=== PATIENT | female | born 1980 | race Caucasian/White ===

== ENCOUNTER → 2016-06-28 | Outpatient (CLI) | payer BC ==
[~2016-06-28] MED LIST: CETI10CA19 PO; DESO1TAB5 PO; OMEP-80 PO
[2016-06-28 11:02] LABS: BASOPHILS % (AUTO) 0.2 % (0-2); EOSINOPHILS # (AUTO) 0.1 T/MM3 (0-0.5); EOSINOPHILS % (AUTO) 1.1 % (0-4); HCT - HEMATOCRIT 40.2 % (36-46); HGB - HEMOGLOBIN 13.1 GM/DL (12-16); IMMATURE GRANULOCYTE # (AUTO) 0.03 T/MM3 (0.00-0.03); IMMATURE GRANULOCYTE % (AUTO) 0.2 % (0.0-0.5); LYMPHOCYTES # (AUTO) 3.1 T/MM3 (1-4.8); LYMPHOCYTES % (AUTO) 24.5 % (23-45); MEAN CORPUSCULAR HGB 26.7 UUG (26-34); MEAN CORPUSCULAR HGB CONC(MCHC 32.6 GM/DL (31-37); MEAN CORPUSCULAR VOLUME 81.9 UM3 (80-100); MEAN PLATELET VOLUME 10.3 UM3 (9.4-12.4); MONOCYTES # (AUTO) 0.5 T/MM3 (0-0.8); MONOCYTES % (AUTO) 4.2 % (0-9.0); NEUTROPHILS #(AUTO)-ABSOLUTE 8.7 T/MM3 (1.8-7.7); NEUTROPHILS % (AUTO) 69.8 % (33-66); RED BLOOD COUNT 4.91 M/MM3 (4.00-5.20); WBC - WHITE BLOOD COUNT 12.5 T/MM3 (4.5-11.0)
[2016-06-28 11:06] LABS: BLOOD, URINE NEGATIVE (NEGATIVE); COLOR,URINE YELLOW (YELLOW); LEUKOCYTE ESTERASE ,URINE NEGATIVE (NEGATIVE); NITRITE,URINE NEGATIVE (NEGATIVE); UROBILINOGEN,URINE 0.2 EU/DL (NORMAL)
[2016-06-28 11:11] LABS: ANION GAP 13 MEQ/L (5-15); BUN/CREATININE RATIO 14 RATIO (6-26); CALCIUM 9.6 MG/DL (8.4-10.2); CHLORIDE 105 MEQ/L (98-107); CO2 - CARBON DIOXIDE 24 MEQ/L (22-30); CREATININE 0.8 MG/DL (0.7-1.2); GLOMERULAR FILTRATION RATE 82; GLUCOSE 133 MG/DL (65-110); POTASSIUM 3.9 MEQ/L (3.6-5); SODIUM 142 MEQ/L (134-144)
--- NOTE | 2016-06-28 12:51 | DI ---
Indication: ITS.REASON: R31.9 HEMATURIA PROCEDURE: CT RENAL W/O CONTRAST: Encounter: Initial Comparison: March 25, 2012 Technique: Axial CT images were performed through the abdomen and pelvis without intravenous contrast. Coronal and sagittal two-dimensional reformats. Automated Exposure Control and Iterative Reconstruction dose reducing techniques were utilized. Findings: The lung bases are clear. The liver shows no contour deforming masses. It is decreased in attenuation relative to the spleen suggesting fatty infiltration. Gallbladder is surgically absent. The spleen is normal. The pancreas and adrenal glands are normal. The kidneys are stable in appearance. No hydronephrosis or stone disease. No ureteral stones. Multiple pelvic phleboliths. The unopacified bladder appears normal. The uterus is normal. Ovaries are normal for age. No free fluid. No evidence of a bowel obstruction. The unenhanced small and large bowel show no acute findings. The appendix is normal. Bone windows are stable without acute findings. Impression: No urolithiasis. No acute disease process seen. No clear etiology for the patient's symptoms. .
== END ==
LOC: IMA 10:37
PROVIDERS: ATTEND Family Medicine
DX: R31.9 Hematuria, unspecified (principal)
CPT/HCPCS: 36415; 80048; 81003; 81025; 85025

== ENCOUNTER 2017-05-01 20:21 | Inpatient (IN) ==
[2017-05-01] MEDS ORDERED: KETOROLAC 30 MG/ML INJECTION IVP ONE (20:36)
[2017-05-01] MEDS ORDERED: NS 1,000 ML IV ONE ×2 (20:36→22:30)
[2017-05-01] MEDS ORDERED: ORPHENADRINE 60 MG/2 ML INJECTION IVP ONE (20:36)
--- NOTE | 2017-05-01 20:36 | Emergency Department Report ---
General Adult HPI - General Stated complaint: low back pain Time Seen by Provider: 05/01/17 20:26 Source: patient, family Mode of arrival: ambulatory Limitations: no limitations - History of Present Illness HPI narrative: Patient was recently dismissed from a hospital in [place] where she was vacationing, and developed a urinary tract infection with subsequent urosepsis, ARDS, and and extended stay in the ICU. Patient was initially treated with meropenem, and then transition to outpatient ertapenem IV daily. Patient presents today with bilateral low back pain, with a feeling of cramps or spasms in the bladder. Due to her recent severe illness, patient admits that she is hypervigilant, and contacted her primary care physician who directed her to the ER. Patient has not taken any medication today, does admit that her pulse normally runs in the high 90s, and that is normal for her. Patient denies fevers , chills, headaches, dizziness, chest pain or pressure, shortness of breath, or abdominal symptoms other than the bladder. Patient was on control when her symptoms initially started last month, but due to her ICU admission, she did not continue control during the illness. Patient had what she would consider normal menses April 21, the day she was extubated. - Related Data Home Medications Medication Instructions Recorded Confirmed Cetirizine HCl [Zyrtec] 10 mg PO HS #0 02/04/12 05/01/17 Omeprazole Magnesium 20 mg PO HS #0 02/04/12 05/01/17 Celecoxib [Celecoxib] 200 mg PO HS 05/01/17 05/01/17 Allergies Allergy/AdvReac Type Severity Reaction Status Date / Time Sulfa (Sulfonamide Allergy Unknown HIVES Verified 05/01/17 20:51 Antibiotics) Review of Systems All systems: reviewed and negative except as stated PFSH Patient Stated Medical History Pneumonia Yes Other Respiratory Yes: RECENT ARDS/sepsis Hx Urinary Tract Infection Yes Other Infectious Yes: ESBL PRODUCING E.COLI - Social History Smoking status: Never smoker Substance use type: does not use Alcohol intake frequency: does not drink Physical Exam - Limitations Limitations: no limitations - General General appearance: alert - Normal Exams: Head:: Normocephalic without trauma Eyes:: Pupils are PERRLA w/ EOMI, No scleral icterus, irritation, or foreign bodies noted ENMT:: No facial trauma, nasal exudates, pharyngeal erythema, or exudates are noted Neck:: Full range of motion, without adenopathy, JVD, bruits or thyromegaly Chest/Respirations:: Clear all lara, with good airflow, and symmetry bilaterally Cardiovascular:: Regular rate and rhythm, without murmur or gallop, Pulses 2+ all extremities, capillary refill, <2 seconds all extremities Abdomen:: Bowel sounds positive, soft, non-tender, non-distended, no hepatosplenomegaly, masses or bruits noted Lymphatic:: No lymphadenopathy, or lymphedema noted Integumentary:: No rashes, hives, or bruising noted, hair and nails, without abnormality Neurological:: Patient is alert, and oriented, cranial nerves, motor/sensory/ cerebellar, exams w/o gross deficits, to observation Psychiatric:: Patient exhibits, appropriate attention, emotion and affect - Back Exam Back exam: Present: normal inspection, full ROM, tenderness ( has mild bilateral parasternal tenderness in the lumbar region, right greater than left, no specific CVA tenderness), muscle spasm Medical Decision Making - [facility] Narrative Medical decision making narrative: Patient is given Toradol, Norflex, and 1 L normal saline in the ER for back pain and mild tachycardia at 105-120 (with admitted anxiety over the illness). CBC - mild elevated white blood cell count at 12, no significant left shift. This actually seems to be an improvement over 2 days ago. CMP - normal, no significant changes in the past several days Lactate/procalcitonin - pro-calcitonin is normal, however lactate is elevated at 3.4 UA - normal Case is discussed with Dr. Mira June, due to the patient's profound and rapid deterioration in the past with urosepsis, and recent extended hospital admission for bacteremia, we will err on the side of caution, start the patient back on meropenem, and admit for observation Case is discussed with hospitalist, Dr. Mortensen will admit the patient inpatient, with infectious disease consultation to Dr. June. - Lab Data Result diagrams: 05/01/17 20:58 05/01/17 20:58 Lab Results 05/01/17 05/01/17 05/01/17 Range/Units 20:58 20:58 20:58 WBC 12.9 H (4.5-11.0) T/MM3 RBC 4.24 (4.00-5.20) M/MM3 Hgb 11.4 L (12-16) GM/DL Hct 35.9 L (36-46) % MCV 84.7 (80-100) UM3 MCH 26.9 (26-34) UUG MCHC 31.8 (31-37) GM/DL RDW Std Deviation 46.1 (36.9-50.2) FL Plt Count 473 H (130-400) T/MM3 MPV 9.9 (9.4-12.4) UM3 Immature Gran % (Auto) 0.4 (0.0-0.5) % Neut % (Auto) 64.1 (33-66) % Lymph % (Auto) 29.2 (23-45) % Haakon % (Auto) 4.7 (0-9.0) % Eos % (Auto) 1.4 (0-4) % Baso % (Auto) 0.2 (0-2) % Neut # (Auto) 8.3 H (1.8-7.7) T/MM3 Lymph # (Auto) 3.8 (1-4.8) T/MM3 Haakon # (Auto) 0.6 (0-0.8) T/MM3 Eos # (Auto) 0.2 (0-0.5) T/MM3 Baso # (Auto) 0.0 (0-0.2) T/MM3 Abs Immat Gran (auto) 0.05 H (0.00-0.03) T/MM3 Turbidity < 20 (0-20) Sodium 144 (134-144) MEQ/L Potassium 3.7 (3.6-5) MEQ/L Chloride 104 (98-107) MEQ/L Carbon Dioxide 24 (22-30) MEQ/L Anion Gap 16 H (5-15) MEQ/L BUN 13.0 (7-17) MG/DL Creatinine 0.6 L (0.7-1.2) mg/dL GFR Calculation 114 BUN/Creatinine Ratio 22 (6-26) RATIO Glucose 151 H (65-110) MG/DL Calculated Osmolality 280 (261-280) MOSM/KG Calcium 9.5 (8.4-10.2) MG/DL Total Bilirubin 0.40 (0.20-1.30) MG/DL Conjugated Bilirubin 0.00 (0.00-0.30) mg/dL Unconjugated Bilirubin 0.00 (0.00-1.1) mg/dL Icterus Index < 2 (0-7) AST 45 H (14-36) U/L ALT 143 H (9-52) U/L Alkaline Phosphatase 108 (38-126) U/L Total Protein 7.5 (6.3-8.2) g/dL Albumin 4.0 (3.5-5.0) g/dL Globulin 3.5 (2.4-3.6) G/DL Albumin/Globulin Ratio 1.1 (1.1-2.2) RATIO Plasma Lactate 3.4 H (0.6-2.2) MMOL/L Procalcitonin < 0.05 NG/ML Specimen Hemolysis < 15 (0-25) Ur Collection Type Urine Color (YELLOW) Urine Clarity Urine pH (5.0-8.0) Ur Specific [place] (1.015-1.025) Urine Protein (NEGATIVE) Urine Glucose (UA) (NEGATIVE) Urine Ketones (NEGATIVE) Urine Occult Blood (NEGATIVE) Urine Nitrate (NEGATIVE) Urine Bilirubin (NEGATIVE) Urine Urobilinogen (NORMAL) EU/DL Ur Leukocyte Esterase (NEGATIVE) Urinalysis Comment Urine Test (Negative) 05/01/17 05/01/17 Range/Units 21:20 21:20 WBC (4.5-11.0) T/MM3 RBC (4.00-5.20) M/MM3 Hgb (12-16) GM/DL Hct (36-46) % MCV (80-100) UM3 MCH (26-34) UUG MCHC (31-37) GM/DL RDW Std Deviation (36.9-50.2) FL Plt Count (130-400) T/MM3 MPV (9.4-12.4) UM3 Immature Gran % (Auto) (0.0-0.5) % Neut % (Auto) (33-66) % Lymph % (Auto) (23-45) % Haakon % (Auto) (0-9.0) % Eos % (Auto) (0-4) % Baso % (Auto) (0-2) % Neut # (Auto) (1.8-7.7) T/MM3 Lymph # (Auto) (1-4.8) T/MM3 Haakon # (Auto) (0-0.8) T/MM3 Eos # (Auto) (0-0.5) T/MM3 Baso # (Auto) (0-0.2) T/MM3 Abs Immat Gran (auto) (0.00-0.03) T/MM3 Turbidity (0-20) Sodium (134-144) MEQ/L Potassium (3.6-5) MEQ/L Chloride (98-107) MEQ/L Carbon Dioxide (22-30) MEQ/L Anion Gap (5-15) MEQ/L BUN (7-17) MG/DL Creatinine (0.7-1.2) mg/dL GFR Calculation BUN/Creatinine Ratio (6-26) RATIO Glucose (65-110) MG/DL Calculated Osmolality (261-280) MOSM/KG Calcium (8.4-10.2) MG/DL Total Bilirubin (0.20-1.30) MG/DL Conjugated Bilirubin (0.00-0.30) mg/dL Unconjugated Bilirubin (0.00-1.1) mg/dL Icterus Index (0-7) AST (14-36) U/L ALT (9-52) U/L Alkaline Phosphatase (38-126) U/L Total Protein (6.3-8.2) g/dL Albumin (3.5-5.0) g/dL Globulin (2.4-3.6) G/DL Albumin/Globulin Ratio (1.1-2.2) RATIO Plasma Lactate (0.6-2.2) MMOL/L Procalcitonin NG/ML Specimen Hemolysis (0-25) Ur Collection Type Urine, void-cc/notcc Urine Color Yellow (YELLOW) Urine Clarity Clear Urine pH 6.0 (5.0-8.0) Ur Specific [place] 1.015 (1.015-1.025) Urine Protein Negative (NEGATIVE) Urine Glucose (UA) Negative (NEGATIVE) Urine Ketones Negative (NEGATIVE) Urine Occult Blood Negative (NEGATIVE) Urine Nitrate Negative (NEGATIVE) Urine Bilirubin Negative (NEGATIVE) Urine Urobilinogen 0.2 (NORMAL) EU/DL Ur Leukocyte Esterase Negative (NEGATIVE) Urinalysis Comment Microscopic not ind. Urine Test Negative (Negative) Disposition Clinical Impression: Elevated lactic acid level Disposition: 02 To [facility] Care Prescriptions: No Action Omeprazole Magnesium 20 mg PO HS #0 Cetirizine HCl [Zyrtec] 10 mg PO HS #0 Celecoxib [Celecoxib] 200 mg PO HS Referrals: Swapna Khalil MD [Family Provider] - - Seen By: physician
[2017-05-01] MEDS: SALINE FLUSH 10ml SYRINGE IVF PRN (21:13)
[2017-05-01] MEDS: MEROPENEM 1 GM in NS 100 ML IV SCH (22:29)
[2017-05-01 22:36] VITALS: TEMP 98.2
[2017-05-01] MEDS ORDERED: MORPHINE SULFATE 4mg INJECTION IVP PRN (23:46)
[2017-05-01] MEDS ORDERED: NS 1,000 ML IV SCH (23:46)
[2017-05-01] MEDS ORDERED: ACETAMINOPHEN 500 MG TABLET PO PRN (23:46)
[2017-05-01] MEDS ORDERED: DOCUSATE SODIUM 100 MG CAPSULE PO PRN (23:46)
[2017-05-01] MEDS ORDERED: HYDROCODONE/APAP 5mg/325mg TABLET PO PRN (23:46)
[2017-05-01] MEDS ORDERED: ONDANSETRON 4 MG/2 ML INJECTION IVP PRN (23:46)
--- NOTE | 2017-05-02 00:04 | History & Physical Report ---
History of Present Illness Date: 05/02/17 Chief complaint: low back pain HPI: This is a 36 y/o female who was in her normal state of health until approximately 3 weeks ago. She developed a UTI and traveled to [place]. There her infection worsened and she ended up in intubated for 10 days with ARDS , multisystem organ failure. The patient was discharged on invanz to return to our community. Since discharge the patient has been seen by Dr. June. She finished her last antibitoic about 1 day ago. Since then she has felt worse with increased lower back pain. (across the entire low back). This pain is not worsened with movement. Although will state if she lies perfectly still it doesn't hurt as much. The patient presented to the ED tonight for evaluation. Due to her recent critical illness it was felt to be cautious. In the ED the workup was entirely unremarkable except for an elevated LA. The ED provider contacted ID and they recommended admission with Meropenem. Review of Systems Review of systems: no headache, no change in vision, no ear pain, slight scratchy to throat (from intubation, and improving) no neck pain, no chest pain, occasional dry cough. non productive and not changed since return to [place]. No heart palpitations, mild dyspnea but not worse. no abdomen pain, no nausea/vomiting. no change in her bowel movements. no vaginal discharge, no dysuria. no skin rashes, no focal neuro complaints The patient reports that while in [facility] her counts concerned the staff for possible leukemia. The patient has an appointment with hematology to do a bone marrow bx soon The patient has chronically increased inflammatory markers that nobody has been able to describe to a specific disease. 12 point ROS otherwise negative except for outlined above. Past Medical History UTI, septic shock, ARDS, elevated sed rate, elevated CRP Surgical History: cholecystectomy, c section, egg harvest for in vitro fertilization Family History Updates: mother alive with MS, Father alive and healthy - Social History Smoking status: Never smoker Substance use type: does not use Alcohol intake: never Alcohol intake frequency: does not drink Housing: house Household members: spouse, children service: No Current occupational status: employed Current occupation: head of radiology department @ [employer] Does patient use chewing tobacco?: No Current residence: Apartment/Private Home Medications Home Medications Medication Instructions Recorded Confirmed Type Cetirizine HCl [Zyrtec] 10 mg PO HS #0 02/04/12 05/01/17 History Omeprazole Magnesium 20 mg PO HS #0 02/04/12 05/01/17 History Celecoxib 200 mg PO HS 05/01/17 05/01/17 History Allergies Allergy/AdvReac Type Severity Reaction Status Date / Time Sulfa (Sulfonamide Allergy Unknown HIVES Verified 05/01/17 20:51 Antibiotics) Exam Vital Signs: Temperature 98.2 F 05/01/17 20:27 Pulse Rate 111 H 05/01/17 23:48 Respiratory Rate 20 05/01/17 23:48 Blood Pressure 152/89 H 05/01/17 23:48 Pulse Oximetry 100 05/01/17 23:48 Telemetry Rhythm: Sinus Rhythm Height/Weight/BMI: Height 1.63 m Weight 119.8 kg Body Mass Index 45.3 - Constitutional Present: no acute distress, well nourished, obese, cooperative - Routine HEENT Exam Head: Present: normocephalic, atraumatic Eye: Present: EOMI, normal accommodation, conjunctivae pink. Absent: conjunctival icterus, scleral injection ENT: Present: mucous membranes moist - Routine Neck Exam Present: supple, full ROM - Routine Respiratory Exam Present: CTA bilaterally - Routine Cardiovascular Exam Present: RRR, no murmur - Routine Abdominal Exam Present: soft, normoactive bowel sounds, non distended, non tender - Routine Extremities Exam Present: no edema, full ROM, normal capillary refill. Absent: cyanosis, clubbing - Routine Back/Spine/Pelvis Exam Back/Spine: Present: full ROM Comments: palpation of back does not ppt any tender per nursing - Routine Neurological Exam Present: alert, oriented X3, CN II-XII intact, moving all extremities, normal tone, vision grossly intact, hearing grossly intact, normal speech. Absent: sensory deficit, motor deficit, altered mental status - Routine Psychiatric Exam Present: normal affect, normal thought process Results - Labs CBC & Chem 7: 05/02/17 04:56 05/02/17 04:56 Labs: reviewed carefully and will be discussed below Assessment and Plan (1) Elevated lactic acid level Current visit: Yes Status: Acute (2) Transaminitis Current visit: Yes Status: Acute (3) History of ARDS Current visit: Yes Status: Acute Assessment and Plan: 1. elevated LA acute POA: technically meets criteria for severe sepsis but not convinced there is an acute infection occurring. ID was contacted. Recommended to start meropenem after cultures drawn. Will cycle LA and give fluid boluses. repeat labs in the am. Obviously consult ID (placed). This patient had what sounds like an impressive luekamoid reaction with her ARDS. The treating hospital in [place] questioned whether she had been told she had leukemia in the past. Obviously not. Patient is scheduled for BM bx in the near future. 2. transaminitis acute POA: patient reports that during her acute illness they spiked signficantly and are on their way down. Repeat in the am 3. DVT ppx; SCD, lovenox 4. hyperglycemia acute POA: stress. repeat in am. no previously described glucose intolerance. 5. gastric ppx: PPI 6. hx of elevated inflammatory markers chronic POA: signficant workup in the past. no described diagnosis. told maybe autoimmune. To be aware of DVT Prophylaxis: SCD's, Lovenox GI Prophylaxis: Protonix Resuscitation Status: Full Code - Time spent with patient Time with patient PN: 30 minutes - Physician Narrative Physician: Abeba Desouza MD Narrative: Date: 05/02/17 Time: 12:15 See my notes/discharge summary on 05/02/17 for additional comments. Hospital Course Summary Disclaimer: The visit summary below is not to be considered part of the above Progress Note.
[2017-05-02] MEDS ORDERED: PANTOPRAZOLE 40 MG INJECTION IVP SCH ×2 (00:45→09:00)
[2017-05-02] MEDS ORDERED: MEROPENEM 1 GM in NS 100 ML IV SCH ×2 (01:00→06:45)
[2017-05-02] MEDS: SALINE FLUSH 10ml SYRINGE IVF PRN (01:03)
[2017-05-02] MEDS: MEROPENEM 1 GM in NS 100 ML IV SCH (01:16)
[2017-05-02] MEDS ORDERED: MEROPENEM 1 GM in NS 50 ML IV SCH (07:00)
[2017-05-02 07:05] VITALS: BP 130/68; PULSE 100; RESP 16; O2SAT 95
--- NOTE | 2017-05-02 07:48 | XRay Report ---
Indication: sepsis PROCEDURE: XR chest 1V: Encounter: Initial Comparison: April 28, 2017 Findings: The prior right PICC line has been removed. Minimal right basilar atelectatic change is stable. No new airspace disease. No pleural effusion or pneumothorax. Heart size and mediastinal contours are within normal limits. Pulmonary vascularity is normal. Impression: Stable minimal right basilar atelectasis. There is a preliminary report by virtual radiologic. .
--- NOTE | 2017-05-02 09:24 | Infectious Disease Consult ---
Infectious Disease Consult Date of Consultation: 05/02/17 Requesting Physician: Abeba Desouza Reason for Consultation: antibiotic recs History of Present Illness: Mrs. Block is a 36 y/o woman who I saw in clinic yesterday for evaluation of recent sepsis. She reports that she has a history of recurrent UTIs about every 8 months or so. She felt that she had a UTI in mid March and had her urine checked. Her urine culture on April 08 grew an ESBL Escherichia coli. Before those results were available, she was empirically given Cipro. She then traveled to [place] because she and her family were going to [place]. Couple of days later she felt that she was still having dysuria and some right flank pain and that she was not getting better. He called back to her doctor's office to check on her urine culture results and was told that the only oral options were sulfa or Macrobid. She has a sulfa allergy and so she was given Macrobid which she filled at a pharmacy in [place]. She continued to not feel well and was awakened in the middle of the night by her Apple watch because her pulse was 144. Her family took her to the hospital in [place]. Her white blood cell count was about 21,000. She was admitted and developed sepsis with acute respiratory failure necessitating intubation. Her blood cultures were positive for ESBL Escherichia coli per records. She also developed ARDS and was treated with steroids for that as well as doxycycline. She had some elevated liver function tests noted which was thought to possibly be due to the doxycycline. She was intubated for about 6 days and then extubated. She had a CT of the chest looking for pulmonary embolus which was negative by report. She also had a CT of the abdomen and pelvis which per her report was unremarkable. She states this was done without contrast. She was discharged near the end of March and was treated with meropenem which was changed to ertapenem on discharge and this was completed day before yesterday. He saw her in my office yesterday to establish care and to answer some of her questions. She reported that her right flank pain had completely resolved. A few hours after she left my office yesterday she reports that she started having some low back pain and felt fatigued. She called Dr. Khalil the who felt that she should go to the ER to be evaluated. In the emergency room her white blood cell count was mildly elevated but this was actually improved from previously and her lactate was noted to be 3.4. She was tachycardic but not febrile. Dr. Lizarraga from the ER called me last night and we felt that the safest thing to do would be to admit her for observation. He had blood cultures drawn which are pending. Her UA yesterday is completely negative. CXR unremarkable. She was started on meropenem. Today she reports that she feels "fine". He did have some low back pain yesterday which was bilateral and she also reports that she had some bladder spasm type discomfort yesterday. WBC today is normal. I reviewed records yesterday from her hospitalization in [place]. She was seen by an ID doctor there, and Strongyloides Ab was ordered, but I'm not aware of the result. Medications Home Medications Medication Instructions Recorded Confirmed Type Cetirizine HCl [Zyrtec] 10 mg PO HS #0 02/04/12 05/01/17 History Omeprazole Magnesium 20 mg PO HS #0 02/04/12 05/01/17 History Celecoxib [Celecoxib] 200 mg PO HS 05/01/17 05/01/17 History Allergies Allergy/AdvReac Type Severity Reaction Status Date / Time Sulfa (Sulfonamide Allergy Unknown HIVES Verified 05/01/17 20:51 Antibiotics) [facility] Patient Stated Medical History Pneumonia Yes Other Respiratory Yes: RECENT ARDS/sepsis Hx Urinary Tract Infection Yes Other Infectious Yes: ESBL PRODUCING E.COLI Recurrent UTIs H/o chronic leukocytosis Surgical History: cholecystectomy, c section, egg harvest for in vitro fertilization Family History Updates: mother alive with MS, Father alive and healthy - Social History Smoking status: Never smoker Substance use type: does not use Alcohol intake: never Alcohol intake frequency: does not drink Housing: house Household members: spouse, children service: No Current occupational status: employed (works at [employer] [place] Current occupation: head of radiology department @ [employer] Does patient use chewing tobacco?: No Current residence: Apartment/Private Home Review of Systems - Constitutional Constitutional: Absent: chills, fever(s), headache(s) - EENMT Eyes: Absent: change in vision - Cardiovascular Cardiovascular: Absent: chest pain - Respiratory Respiratory: Absent: cough, dyspnea - Gastrointestinal Gastrointestinal: Present: abdominal pain (near bladder yesterday). Absent: diarrhea, nausea, vomiting - Genitourinary Genitourinary: Absent: dysuria, flank pain - Musculoskeletal Musculoskeletal: Absent: arthralgias, joint swelling - Integumentary/Breasts Integumentary: Absent: rash - Neurological Neurological: Absent: confusion, headache(s) - Hematologic/Lymphatic Hematologic/Lymphatic: Absent: easy bruising Exam Vital Signs: Temperature 98.2 F 05/02/17 07:00 Pulse Rate 100 05/02/17 07:00 Respiratory Rate 16 05/02/17 07:00 Blood Pressure 130/68 05/02/17 07:00 Pulse Oximetry 95 05/02/17 07:00 Height/Weight/BMI: Height 1.63 m Weight 120.3 kg Body Mass Index 45.3 - Constitutional Present: no acute distress, well nourished, well developed - Routine HEENT Exam Head: Present: normocephalic, atraumatic Eye: Present: EOMI, PERRL ENT: Present: mucous membranes moist, oropharynx clear, dentition normal - Routine Neck Exam Present: supple - Routine Respiratory Exam Present: CTA bilaterally - Routine Cardiovascular Exam Present: RRR - Routine Abdominal Exam Present: soft, normoactive bowel sounds, non distended, non tender. Absent: rebound, guarding - Routine Exam Comments: No CVA tenderness - Routine Extremities Exam Absent: cyanosis, clubbing, edema Comments: RUE (former PICC site) is without erythema, edema or tenderness - Routine Skin Exam Absent: intact, rash - Routine Neurological Exam Present: alert, oriented X3, CN II-XII intact. Absent: motor deficit - Routine Psychiatric Exam Present: normal affect, normal thought process Results - Labs CBC & Chem 7: 05/02/17 04:56 05/02/17 04:56 Impression: Elevated lactate Leukocytosis, resolving Tachycardia Recent sepsis/septicemia with ESBL E. coli from a urinary source Recent pyelonephritis with ESBL E. coli H/o recurrent UTIs H/o leukocytosis, chronic H/o tachycardia, chronic per patient Recommendation: Continue Merrem for now. I will order a CT of the A/P with contrast to make sure there's no persistent focus of infection in her kidneys, and also to look at her low back due to her back pain. If her back pain persists, we could consider an MRI, however, her pain is improved today, which argues against discitis/osteomyelitis. If the CT is unrevealing, and she's feeling ok (and wants to go home) she could be discharged home and we'll follow up on her blood cultures results. I would recommend discharging home off antibiotics, provided the CT is unrevealing. Discussed with Dr. Desouza.
[2017-05-02] MEDS ORDERED: IOHEXOL 300mg/ml 100ml INJECTION ONE (09:35)
[2017-05-02] MEDS ORDERED: SALINE FLUSH 10ml SYRINGE ONE (09:35)
--- NOTE | 2017-05-02 10:19 | CT Scan Report ---
Indication: low back pain, recent pyelo and sepsis PROCEDURE: CT abdomen pelvis w con: Encounter: Initial Comparison: Renal CT dated June 28, 2016 Technique: Axial CT images were performed through the abdomen and pelvis after the administration of intravenous contrast. Coronal and sagittal two-dimensional reformats. Automated Exposure Control and Iterative Reconstruction dose reducing techniques were utilized. Contrast: Omnipaque 300 100 mL Findings: There is patchy airspace consolidation in the right middle lobe with air bronchograms present. Small area of atelectasis at the costophrenic angle in the right lower lobe. Mild infectious or inflammatory tree-in-bud type nodular opacities seen in the medial aspect of both lower lobes. Liver is decreased in attenuation relative to the spleen consistent with fatty infiltration. There is no enhancing liver mass or bile duct dilatation. The gallbladder is surgically absent. The spleen is normal. The pancreas is normal. The adrenal glands are normal. Areas of chronic cortical scarring in the left kidney. There is normal enhancement of both kidneys. No hydronephrosis or stone disease seen. No abdominal or pelvic lymphadenopathy. The bladder is normal. Uterus and ovaries appear normal. No free fluid. No evidence of a bowel obstruction. The appendix is gas-filled and normal. No free air. Bone windows show no acute findings. Impression: 1. Right middle lobe airspace disease with bilateral medial lower lobe tree-in-bud type airspace opacities suggests a pneumonia with peribronchial spread of infection. 2. No acute disease process seen in the abdomen or pelvis. No CT evidence of pyelonephritis. .
[2017-05-02] MEDS ORDERED: MORPHINE SULFATE 2mg INJECTION IVP PRN (12:45)
--- NOTE | 2017-05-02 12:55 | Progress Note ---
Progress Note: Dr. Mortensen's note reviewed. Laurence interviewed and examined. CC: Back pain HPI: Laurence is a 36-year-old female who was hospitalized in [place] from 04/13- 04/24 with ESBL Escherichia coli sepsis/bacteremia resulting in ARDS and multisystem organ failure requiring intubation. UTI precipitated the infection. She was treated with IV meropenem to ertapenem through 04/30. She felt back to normal when antibiotics were completed other than minor residual scratchy throat and nonproductive cough present after extubation; both symptoms are gradually improving by patient report. She had several appointments yesterday and was more active than she has been since returning to [place]. Late in the day she noticed some low back discomfort which she described as a dull achy pain in the flanks. She had no urinary symptoms, no radicular pain, and no numbness. Pain was more evident early in the evening and as intensity of flank pain increased it was elected to refer her to the emergency room for evaluation as a precaution. Patient reports she might have had some minor bladder cramping but that she may be hypersensitive to that possibility. She specifically denies fevers, chills, lightheadedness, or palpitations. She's had no pleuritic pain and cough is minimal and nonproductive. In the emergency room chest x-ray was unremarkable as were labs except lactic acid of 3.4. Urinalysis was unremarkable. She was subsequently hospitalized with initiation of antibiotics pending further evaluation. Back pain resolved overnight and patient reports feeling fine today PH/SH/FH: agree with that recorded last night by Dr. Mortensen. Paternal grandmother of acute leukemia. ROS: [address] Mortensen and patient reports chronic low-grade tachycardia. EXAM: General-NAD, alert, fluent speech; 98.2 130/68, heart rate 100, 95% room air HEENT-PERRL, EOMI without nystagmus, conjunctiva clear, sclera anicteric, conjugate gaze, facial structures symmetric, oropharynx clear except faint white plaques on the lateral aspects of tongue, neck supple and without adenopathy Lungs-respirations nonlabored, good airflow, breath sounds clear anteriorly/ posteriorly-specifically no abnormal sounds heard in the right anterior lung field Cardiac-regular rhythm, S1-S2, borderline tachycardia Abd-obese, soft, nontender, bowel sounds present Ext-without edema Skin-without rash/wounds Neuro-cranial nerves II through XII intact, sensation intact to light touch, MAEW, motor tone normal, no tremor Psych-euthymic, calm, cooperative DATA: Lactic acid 3.4 on presentation dropping with in 4 hours to 2.0 and subsequently to 1.7; procalcitonin nondetectable. Urinalysis unremarkable. White count 12.9 with normal differential on presentation, white count 9.0 this morning. Hemoglobin 11.4 dropping to 9.7 with hydration; electrolytes unremarkable, creatinine 0.6, liver enzymes with minor elevation AST/ALT. Portable chest x-ray unremarkable by my review; CT abdomen/pelvis also reviewed by myself demonstrating faint right middle lobe infiltrate, no acute abdominal findings A/P: Lactic acidosis, resolved Probable dehydration/hemoconcentration Right middle lobe infiltrate Recent ESBL Escherichia coli sepsis with ARDS Probable thrush Transaminitis Leukocytosis, chronic-improved Tachycardia, chronic per patient Doing well today, CT with right middle lobe infiltrate however no pulmonary symptoms that correspond to CT findings. Patient had diffuse infiltrates, right greater than left, while hospitalized in [place] and I suspect what we are seeing simply represents resolving radiographic abnormalities. Lactic acid was elevated once and has subsequently been normal, procalcitonin was normal and there were no symptoms that corresponded to the abnormality. There was no documented hypotension and liver abnormalities are trivial. Findings have been discussed with Dr. June and Dr. Khalil. At this point there is no indication for continued antibiotic therapy and meropenem has been discontinued. I suspect the patient was slightly dehydrated yesterday as hemoglobin was above those in the records I currently have from [place] and dropped with hydration overnight; this may have contributed to development of lactate on presentation also without demonstrated hypotension that seems unlikely. Patient is not on medications that would contribute to lactate accumulation. Nonetheless the patient appears well and is asymptomatic without high risk findings. Short-term follow-up with Dr. Khalil as planned early next week and results of blood cultures drawn last night will be monitored daily over the weekend in the event intervention should become necessary. Stable for discharge at this time. Nystatin suspension added for probable thrush.
--- NOTE | 2017-05-02 13:02 | Discharge Summary ---
Discharge Information Date of admission: 05/01/17 22:42 Anticipated date of discharge: 05/02/17 Attending Physician: Abeba Desouza MD Primary care physician: Swapna Khalil MD Consults: Larissa June M.D. - Discharge Diagnosis (1) Elevated lactic acid level Status: Acute (2) Transaminitis Status: Acute (3) History of ARDS Status: Acute Lactic acidosis, resolved Probable dehydration/hemoconcentration Right middle lobe infiltrate Recent ESBL Escherichia coli sepsis with ARDS Probable thrush Transaminitis Leukocytosis, chronic-improved Tachycardia, chronic per patient - Laboratory Labs: Lactic acid-3.4-2.0-1.8-1.7. Procalcitonin < 0.05 urinalysis unremarkable On admission AST 45, ALT 143 05/02/17 04:56 05/02/17 04:56 - Microbiology Blood cultures 2 negative at the time of discharge - Radiology Radiology: Portable chest x-ray on admission revealed minimal right basilar atelectasis. CT of the abdomen and pelvis with contrast on 05/02/17: There is patchy airspace consolidation in the right middle lobe with air bronchograms present. Small area of atelectasis at the costophrenic angle in the right lower lobe. Mild infectious or inflammatory tree-in-bud type nodular opacities seen in the medial aspect of both lower lobes. Liver is decreased in attenuation relative to the spleen consistent with fatty infiltration. There is no enhancing liver mass or bile duct dilatation. The gallbladder is surgically absent. The spleen is normal. The pancreas is normal. The adrenal glands are normal. Areas of chronic cortical scarring in the left kidney. There is normal enhancement of both kidneys. No hydronephrosis or stone disease seen. No abdominal or pelvic lymphadenopathy. The bladder is normal. Uterus and ovaries appear normal. No free fluid. No evidence of a bowel obstruction. The appendix is gas-filled and normal. No free air. Bone windows show no acute findings. Impression: 1. Right middle lobe airspace disease with bilateral medial lower lobe tree-in-bud type airspace opacities suggests a pneumonia with peribronchial spread of infection. 2. No acute disease process seen in the abdomen or pelvis. No CT evidence of pyelonephritis. History of Present Illness HPI: This is a 36 y/o female who was in her normal state of health until approximately 3 weeks ago. She developed a UTI and traveled to [place]. There her infection worsened and she ended up in intubated for 10 days with ARDS , multisystem organ failure. The patient was discharged on invanz to return to our community. Since discharge the patient has been seen by Dr. June. She finished her last antibiotics about 1 day ago. Since then she has felt worse with increased lower back pain. (across the entire low back). This pain is not worsened with movement. Although will state if she lies perfectly still it doesn't hurt as much. The patient presented to the ED [facility] for evaluation. Due to her recent critical illness it was felt to be cautious. In the ED the workup was entirely unremarkable except for an elevated LA. The ED provider contacted ID and they recommended admission with Meropenem. Objective Vital signs: Temperature 98.2 F 05/02/17 07:00 Pulse Rate 100 05/02/17 09:25 Respiratory Rate 16 05/02/17 09:25 Blood Pressure 130/68 05/02/17 07:00 Pulse Oximetry 95 05/02/17 09:25 Height/Weight/BMI: Height 1.63 m Weight 120.3 kg Body Mass Index 45.3 Hospital Course This is a general summary of the patient's hospital course. For more details refer to the complete medical record. Hospital course: Doing well today, CT with right middle lobe infiltrate however no pulmonary symptoms that correspond to CT findings. Patient had diffuse infiltrates, right greater than left, while hospitalized in [place] and I suspect what we are seeing simply represents resolving radiographic abnormalities. Lactic acid was elevated once and has subsequently been normal, procalcitonin was normal and there were no symptoms that corresponded to the abnormality. There was no documented hypotension and liver abnormalities are trivial. Findings have been discussed with Dr. June and Dr. Khalil. At this point there is no indication for continued antibiotic therapy and meropenem has been discontinued. I suspect the patient was slightly dehydrated yesterday as hemoglobin was above those in the records I currently have from [place] and dropped with hydration overnight; this may have contributed to development of lactate on presentation also without demonstrated hypotension that seems unlikely. Patient is not on medications that would contribute to lactate accumulation. Nonetheless the patient appears well and is asymptomatic without high risk findings. Short-term follow-up with Dr. Khalil as planned early next week and results of blood cultures drawn last night will be monitored daily over the weekend in the event intervention should become necessary. Stable for discharge at this time. Nystatin suspension added for probable thrush. Resuscitation Status: Full Code Discharge Plan - Discharge Disposition Discharge Date: 05/02/17 Disposition: 01 Discharged Home, Self-Care *Condition: Stable Reason For Visit (Visit label in EMR): elevated lactic acid - Discharge Medications *Discharge Medications: New Nystatin Oral Liq. [Mycostatin] 5 ml PO QID #200 ml Continue Omeprazole Magnesium 20 mg PO HS #0 Cetirizine HCl [Zyrtec] 10 mg PO HS #0 Celecoxib 200 mg PO HS - Discharge Packet/Instructions *Diet: Regular *Activity: As tolerated/per prior instructions *Pain Management/Treatment: Celebrex daily *Wound Care: Not applicable *Expected Signs/Symptoms: No new symptoms expected *Notify Physician if: Fevers, chills, increasing cough or sputum production, increased difficulty breathing *During Business Hours Contact: Dr. Khalil's office *After Business Hours Contact: Call [facility] at [phone] and ask that the on-call physician be paged for Dr. Khalil *Pending Lab/Results: Follow up w/Provider - Referrals/Follow Up *Referrals/Follow Up: Swapna Khalil MD [Family Provider] - (Early next week) - Patient Handouts Patient Handouts: Sepsis (GEN) - Dismissal Complete Discharge Instructions are:: Complete Physician Narrative - Narrative Attestation Narrative: Date: 05/02/17 Time: [id number]
[2017-05-02 13:28] VITALS: BMI 45.5
[2017-05-02] MEDS ORDERED: OMEPRAZOLE 20 MG CAPSULE PO SCH (21:00)
[2017-05-02] MEDS ORDERED: CELECOXIB 200 MG CAPSULE PO SCH (21:00)
[2017-05-02] MEDS ORDERED: CETIRIZINE 10 MG TABLET PO SCH (21:00)
== END 2017-05-02 13:20 | disposition home or self-care (01) | DRG 641 ==
LOC: ED 20:21 → MED 22:42
PROVIDERS: ADMIT Emergency Medicine; ATTEND Internal Medicine

== ENCOUNTER 2017-06-25 22:35 | Inpatient (IN) ==
--- NOTE | 2017-06-25 22:57 | Emergency Department Report ---
General Adult HPI - General Stated complaint: FEVER FLANK PAIN UTI PULSE HIGH Time Seen by Provider: 06/25/17 22:55 Source: patient Mode of arrival: ambulatory Limitations: no limitations - History of Present Illness HPI narrative: 36-year-old female presents to the emergency department with the chief complaint of left sided flank discomfort and urinary frequency and burning. She has a history of urosepsis and was in the ICU and on meropenem for an extended period of time earlier this past year. She describes that her symptoms are similar in nature. Pain is moderate. It is dull. No radiation. She denies any trauma or injury. No other complaints or associated symptoms. She was at home when her symptoms began on Friday and symptoms have been persistent in nature since onset. She does have an underlying undiagnosed rheumatologic condition. She is currently being evaluated for CML as well by hematology oncology. - Related Data Home Medications Medication Instructions Recorded Confirmed Cetirizine HCl [Zyrtec] 10 mg PO HS #0 02/04/12 06/25/17 Omeprazole Magnesium 20 mg PO HS #0 02/04/12 06/25/17 Celecoxib 200 mg PO HS 05/01/17 06/25/17 Desog-E.estradiol/E.estradiol 1 tab PO HS 06/16/17 06/25/17 [Viorele 28 Day Tablet] Naproxen Sodium [Aleve] 1 tab PO Q8H PRN 06/25/17 06/25/17 Nitrofurantoin Macrocrystal 1 tab PO BID 06/25/17 06/25/17 [Nitrofurantoin] Tylenol 1,000 mg PO Q6H 06/25/17 06/25/17 Allergies Allergy/AdvReac Type Severity Reaction Status Date / Time Sulfa (Sulfonamide Allergy Unknown HIVES Verified 06/25/17 23:47 Antibiotics) Review of Systems Constitutional: Reports: fever, weakness (generalized) Eyes: Denies: eye pain, vision change ENT: Denies: ear pain, throat pain Cardiovascular: Denies: chest pain, palpitations Respiratory: Denies: cough, dyspnea Gastrointestinal: Denies: abdominal pain, nausea, vomiting, diarrhea Genitourinary: Reports: urgency, dysuria, frequency. Denies: hematuria Musculoskeletal: Denies: back pain, arthralgia Integumentary: Denies: erythema, rash Neurological: Denies: headache, numbness Psychiatric: Denies: anxiety, depression Endocrine: Reports: fatigue. Denies: polydipsia Hematological/Lymphatic: Denies: easy bruising, lymphadenopathy Allergic/Immunologic: Denies: facial swelling, itchy eyes PFSH Patient Stated Medical History Pneumonia Yes Sleep Apnea No Other Respiratory Yes: RECENT ARDS/sepsis Hx Urinary Tract Infection Yes Other Infectious Yes: ESBL PRODUCING E.COLI Other Yes: BONE MARROW BIOPSY Surgical History: cholecystectomy, c section, egg harvest for in vitro fertilization Family History Updates: mother alive with MS, Father alive and healthy - Social History Smoking status: Never smoker Substance use type: does not use Alcohol intake: never Alcohol intake frequency: does not drink Housing: house Household members: spouse, children service: No Current occupational status: employed Current occupation: head of radiology department @ [employer] Does patient use chewing tobacco?: No Current residence: Apartment/Private Home Physical Exam - Limitations Limitations: no limitations - General General appearance: alert, in no apparent distress - Normal Exams: Head:: Normocephalic without trauma Eyes:: Pupils are PERRLA w/ EOMI, No scleral icterus, irritation, or foreign bodies noted ENMT:: No facial trauma, nasal exudates, pharyngeal erythema, or exudates are noted Dental: No fractured, loose, or missing teeth noted Neck:: Full range of motion, without adenopathy, JVD, bruits or thyromegaly Chest/Respirations:: Clear all lara, with good airflow, and symmetry bilaterally Cardiovascular:: Regular rate and rhythm, without murmur or gallop, Pulses 2+ all extremities, capillary refill, <2 seconds all extremities Abdomen:: Bowel sounds positive, soft, non-tender, non-distended, no hepatosplenomegaly, masses or bruits noted Lymphatic:: No lymphadenopathy, or lymphedema noted Musculoskeletal:: No tenderness, or deformity noted, good range of motion, all extremities Integumentary:: No rashes, hives, or bruising noted, hair and nails, without abnormality Neurological:: Patient is alert, and oriented, cranial nerves, motor/sensory/ cerebellar, exams w/o gross deficits, to observation Psychiatric:: Patient exhibits, appropriate attention, emotion and affect Course Vital Signs Temperature 100.7 F H 06/25/17 22:45 Pulse Rate 136 H 06/25/17 22:45 Respiratory Rate 20 06/25/17 22:45 Blood Pressure 124/64 06/25/17 22:45 Pulse Oximetry 99 06/25/17 22:45 Temperature 99.2 F 06/26/17 02:30 Pulse Rate 111 H 06/26/17 02:45 Respiratory Rate 27 H 06/26/17 02:45 Blood Pressure 138/87 06/26/17 02:45 Pulse Oximetry 99 06/26/17 02:45 Medical Decision Making - MDM Narrative Medical decision making narrative: Labs / imaging were discussed in detail with the patient and family and questions are answered. Patient is given IV hydration. She is given parental narcotic medication with improvement of symptoms. She was given acetaminophen 1 g with improvement of temperature. Patient does meet SIRS criteria but I do not have a source of infection for treatment with antibiotic therapy. Patient has a normal lactate and normal pro calcitonin. Patient is discussed with Dr. Tonio Aguilar and will be admitted to the CCU in observation status for further evaluation and treatment. Patient is in agreement with the current plan of management. Antibiotic therapy will not be initiated without a source of infection to treat at this time with normal lactate and normal pro calcitonin as there is concern that the antibiotic therapy could do more harm than benefit to the patient. Patient verbalizes agreement and understanding of this and is in agreement with this line of thinking. Patient is admitted to CCU in improved condition. No further orders from accepting physician who is in agreement with the current plan of management. Patient and family are in agreement with the current plan of management. Patient was admitted to the hospital for further evaluation and treatment at this time. Dr. Aguilar will perform his own consultations of the patient's ID physician, call center support representative, and plastic maker at his discretion. - Differential Diagnosis UTI, ureteral stone, pyelonephritis, metabolic disorder, PE - Lab Data Result diagrams: 06/25/17 23:15 06/25/17 23:08 Lab Results 06/25/17 06/25/17 06/25/17 Range/Units 23:08 23:08 23:08 WBC (4.5-11.0) T/MM3 RBC (4.00-5.20) M/MM3 Hgb (12-16) GM/DL Hct (36-46) % MCV (80-100) UM3 MCH (26-34) UUG MCHC (31-37) GM/DL RDW Std Deviation (36.9-50.2) FL Plt Count (130-400) T/MM3 MPV (9.4-12.4) UM3 Immature Gran % (Auto) (0.0-0.5) % Neut % (Auto) (33-66) % Lymph % (Auto) (23-45) % [place] % (Auto) (0-9.0) % Eos % (Auto) (0-4) % Baso % (Auto) (0-2) % Neut # (Auto) (1.8-7.7) T/MM3 Lymph # (Auto) (1-4.8) T/MM3 [place] # (Auto) (0-0.8) T/MM3 Eos # (Auto) (0-0.5) T/MM3 Baso # (Auto) (0-0.2) T/MM3 Abs Immat Gran (auto) (0.00-0.03) T/MM3 Turbidity < 20 (0-20) Sodium 146 H (134-144) MEQ/L Potassium 4.1 (3.6-5) MEQ/L Chloride 108 H (98-107) MEQ/L Carbon Dioxide 24 (22-30) MEQ/L Anion Gap 14 (5-15) meq/L BUN 6.0 L (7-17) MG/DL Creatinine 0.6 L (0.7-1.2) mg/dL GFR Calculation 114 BUN/Creatinine Ratio 10 (6-26) RATIO Glucose 149 H (65-110) MG/DL Calculated Osmolality 282 H (261-280) MOSM/KG Calcium 9.3 (8.4-10.2) MG/DL Total Bilirubin 0.50 (0.20-1.30) MG/DL Icterus Index < 2 (0-7) AST 29 (14-36) U/L ALT 30 (1-35) U/L Alkaline Phosphatase 77 (38-126) U/L Troponin I < 0.012 (0-0.12) ng/ml Total Protein 7.3 (6.3-8.2) g/dL Albumin 4.0 (3.5-5.0) g/dL Globulin 3.3 (2.4-3.6) G/DL Albumin/Globulin Ratio 1.2 (1.1-2.2) RATIO Lipase 91 (23-300) U/L Plasma Lactate 2.1 (0.6-2.2) MMOL/L Procalcitonin < 0.05 NG/ML Specimen Hemolysis 59 H < 15 (0-25) Ur Collection Type Urine Color (YELLOW) Urine Clarity Urine pH (5.0-8.0) Ur Specific [place] (1.015-1.025) Urine Protein (NEGATIVE) Urine Glucose (UA) (NEGATIVE) Urine Ketones (NEGATIVE) Urine Occult Blood (NEGATIVE) Urine Nitrate (NEGATIVE) Urine Bilirubin (NEGATIVE) Urine Urobilinogen (NORMAL) EU/DL Ur Leukocyte Esterase (NEGATIVE) Urinalysis Comment Urine Test (Negative) 06/25/17 06/25/17 06/25/17 Range/Units 23:15 23:27 23:27 WBC 12.4 H (4.5-11.0) T/MM3 RBC 4.37 (4.00-5.20) M/MM3 Hgb 11.5 L (12-16) GM/DL Hct 35.1 L (36-46) % MCV 80.3 (80-100) UM3 MCH 26.3 (26-34) UUG MCHC 32.8 (31-37) GM/DL RDW Std Deviation 42.4 (36.9-50.2) FL Plt Count 326 (130-400) T/MM3 MPV 10.1 (9.4-12.4) UM3 Immature Gran % (Auto) 0.3 (0.0-0.5) % Neut % (Auto) 73.4 H (33-66) % Lymph % (Auto) 18.0 L (23-45) % [place] % (Auto) 7.3 (0-9.0) % Eos % (Auto) 0.8 (0-4) % Baso % (Auto) 0.2 (0-2) % Neut # (Auto) 9.1 H (1.8-7.7) T/MM3 Lymph # (Auto) 2.2 (1-4.8) T/MM3 [place] # (Auto) 0.9 H (0-0.8) T/MM3 Eos # (Auto) 0.1 (0-0.5) T/MM3 Baso # (Auto) 0.0 (0-0.2) T/MM3 Abs Immat Gran (auto) 0.04 H (0.00-0.03) T/MM3 Turbidity (0-20) Sodium (134-144) MEQ/L Potassium (3.6-5) MEQ/L Chloride (98-107) MEQ/L Carbon Dioxide (22-30) MEQ/L Anion Gap (5-15) meq/L BUN (7-17) MG/DL Creatinine (0.7-1.2) mg/dL GFR Calculation BUN/Creatinine Ratio (6-26) RATIO Glucose (65-110) MG/DL Calculated Osmolality (261-280) MOSM/KG Calcium (8.4-10.2) MG/DL Total Bilirubin (0.20-1.30) MG/DL Icterus Index (0-7) AST (14-36) U/L ALT (1-35) U/L Alkaline Phosphatase (38-126) U/L Troponin I (0-0.12) ng/ml Total Protein (6.3-8.2) g/dL Albumin (3.5-5.0) g/dL Globulin (2.4-3.6) G/DL Albumin/Globulin Ratio (1.1-2.2) RATIO Lipase (23-300) U/L Plasma Lactate (0.6-2.2) MMOL/L Procalcitonin NG/ML Specimen Hemolysis (0-25) Ur Collection Type Urine, void-cc/notcc Urine Color Yellow (YELLOW) Urine Clarity Clear Urine pH 7.0 (5.0-8.0) Ur Specific [place] 1.010 L (1.015-1.025) Urine Protein Negative (NEGATIVE) Urine Glucose (UA) Negative (NEGATIVE) Urine Ketones Negative (NEGATIVE) Urine Occult Blood Negative (NEGATIVE) Urine Nitrate Negative (NEGATIVE) Urine Bilirubin Negative (NEGATIVE) Urine Urobilinogen 0.2 (NORMAL) EU/DL Ur Leukocyte Esterase Negative (NEGATIVE) Urinalysis Comment Microscopic not ind. Urine Test Negative (Negative) - Radiology Data Radiology results reviewed: Yes: I reviewed the patient's radiology results. CT ABD/PELVIS: Fatty liver with hepatomegaly. Kidney slightly atrophic compared to right with some cortical scarring. No hydronephrosis or renal stones. No ureteral stones. Small scattered phleboliths within the pelvis which are similar to prior exam. Normal appendix. Moderate stool in the colon without obstruction or free air. No inflammatory process. Chest x-ray: Similar to comparison exam. CTA chest: No PE. No infiltrate. - EKG Data EKG #1 EKG results narrative: Sinus tachycardia. 127 beats per minute. No STEMI. Disposition Clinical Impression: Systemic inflammatory response syndrome (SIRS), Tachycardia Leukocytosis Qualifiers: Leukocytosis type: other Qualified Code(s): D72.828 - Other elevated white blood cell count Disposition: 02 To [facility] Condition: Stable Time of Disposition: 01:00 (Admit. Dr. Aguilar. ) - Seen By: physician
[2017-06-25] MEDS ORDERED: NS 1,000 ML IV ONE (23:08)
[2017-06-25] MEDS ORDERED: ACETAMINOPHEN 500 MG TABLET PO SCH (23:15)
[2017-06-25] MEDS: SALINE FLUSH 10ml SYRINGE IVF PRN (23:54)
[2017-06-26] MEDS ORDERED: FentaNYL 250 MCG/5 ML INJECTION IVP ONE (01:50)
[2017-06-26] MEDS ORDERED: IOHEXOL 350mg/ml 75ml INJECTION ONE (02:02)
[2017-06-26] MEDS ORDERED: SALINE FLUSH 10ml SYRINGE ONE (02:02)
[2017-06-26] MEDS ORDERED: TYLENOL 1000 MG PO SCH (02:07)
[2017-06-26] MEDS ORDERED: SENNA + DOCUSATE TABLET PO PRN (02:07)
[2017-06-26] MEDS ORDERED: LR 1,000 ML IV SCH (02:07)
[2017-06-26 02:46] VITALS: BMI 46.5
--- NOTE | 2017-06-26 03:21 | History & Physical Report ---
History of Present Illness Date: 06/26/17 Chief complaint: Fever, dysuria HPI: Laurence is a pleasant 36-year-old female patient of Dr Patiño who presented to the emergency department with urinary frequency and dysuria, fever of 101 at home, and pulse rate of 140, which she was aware of in part due to her apple watch. this appears to be very similar to her presentation on may 01, when she was admitted for an elevated lactic acid without a clear source. her lactic acid today proves to be 2.1. no obvious source of sepsis was discovered on that admission, either. however, she was critically ill throughout the second half of march in [facility], where she was admitted while on vacation with what proved to be septic shock due to esbl producing e. coli urosepsis complicated by ards and respiratory failure. she states that she has been treated twice for urinary tract infections since then, and was actually begun on macrobid yesterday for which she has had 2 doses so far. further, she has been followed by dr. Wagner for several years for an underlying rheumatologic issue which has evaded definitive diagnosis. she states that she has chronically elevated inflammatory markers, intermittent arthritis including sacroiliitis, and intermittent bouts of abdominal pain with diarrhea, on 2 occasions including hematochezia. she has had colonoscopy and several egd without abnormal findings. in the emergency department, her urinalysis looks essentially perfect tonight , granted she has been on macrobid, but this appears to be working as there is no evidence of cystitis now, there is a urine culture pending in our lab from yesterday morning. she had a lactic acid of 2.1, and a white blood cell count of 12.3, with fever and tachycardia, this represents systemic inflammatory response syndrome, no source can be found. she does have some abnormal findings on her chest x-ray, which are not new, and have been felt to represent resolving pneumonia from back in March. she has seen pulmonology, dr. fay, and had normal pulmonary function studies. she has also seen dr. Acevedo with urology, and dr. Aburto with hematology/oncology, she recently underwent bone marrow biopsy actually, the thought being she may have a low- grade underlying myelodysplastic syndrome. the preliminary findings were not very impressive, cytogenetic studies are still pending. she is placed in observation status for iv fluids, and serial physical and laboratory examination. Review of Systems - Constitutional Constitutional: Present: chills, fatigue ( since her critical illness in march), fever(s) - EENMT Eyes: Absent: blurry vision, change in vision Mouth/Throat: Present: dry mouth ( chronic, 'atypical sjogren's'). Absent: pain, sore throat - Cardiovascular Cardiovascular: Present: dyspnea on exertion ( mild and present since march as above). Absent: chest pain, palpitations - Gastrointestinal Gastrointestinal: Present: abdominal pain ( not acute, mild) - Genitourinary Genitourinary: Present: dysuria, urinary urgency - Neurological Neurological: Absent: confusion, focal weakness Past Medical History Medical History Updates: essentially all as outlined above. she underwent in vitro fertilization after significant difficulty in becoming . atypical sjogren's. 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) Does patient use chewing tobacco?: No Current residence: Apartment/Private Home Medications Home Medications Medication Instructions Recorded Confirmed Type Cetirizine HCl [Zyrtec] 10 mg PO HS #0 02/04/12 06/25/17 History Omeprazole Magnesium 20 mg PO HS #0 02/04/12 06/25/17 History Celecoxib 200 mg PO HS 05/01/17 06/25/17 History Desog-E.estradiol/E.estradiol 1 tab PO HS 06/16/17 06/25/17 History [Viorele 28 Day Tablet] Naproxen Sodium [Aleve] 1 tab PO Q8H PRN 06/25/17 06/25/17 History Nitrofurantoin Macrocrystal 1 tab PO BID 06/25/17 06/25/17 History [Nitrofurantoin] Tylenol 1,000 mg PO Q6H 06/25/17 06/25/17 History Allergies Allergy/AdvReac Type Severity Reaction Status Date / Time Sulfa (Sulfonamide Allergy Intermediate HIVES Verified 06/26/17 04:08 Antibiotics) Exam Vital Signs: Temperature 99.2 F 06/26/17 02:30 Pulse Rate 111 H 06/26/17 02:45 Respiratory Rate 27 H 06/26/17 02:45 Blood Pressure 138/87 06/26/17 02:45 Pulse Oximetry 99 06/26/17 02:45 Height/Weight/BMI: Height 5 ft 4 in Weight 123.1 kg Body Mass Index 46.5 - Constitutional Present: no acute distress - Routine HEENT Exam Head: Present: normocephalic, atraumatic Eye: Present: EOMI, PERRL ENT: Present: mucous membranes moist - Routine Neck Exam Present: supple, full ROM. Absent: JVD - Routine Respiratory Exam Present: CTA bilaterally. Absent: accessory muscle use, dyspnea, respiratory distress - Routine Cardiovascular Exam Present: RRR - Routine Abdominal Exam Present: soft, normoactive bowel sounds, non distended, non tender - Routine Extremities Exam Present: normal capillary refill. Absent: cyanosis, clubbing, edema - Routine Skin Exam Present: intact. Absent: rash - Routine Neurological Exam Present: alert, oriented X3, CN II-XII intact - Routine Psychiatric Exam Present: normal affect Comments: pleasant and cooperative to interview and examination - Additional findings Additional findings: examination performed using telemedicine equipment with the assistance of the bedside nurse Results - Labs CBC & Chem 7: 06/26/17 03:33 06/26/17 03:33 Labs: lactic acid 2.1, pro calcitonin normal troponin normal c others in the chart - Imaging and Cardiology CT scan - chest Additional comments: reported as negative for pulmonary embolism, negative for acute infiltrates, radiologist's interpretation to be reviewed when it is available Assessment and Plan (1) Elevated lactic acid level Current visit: No Status: Acute (2) Systemic inflammatory response syndrome (SIRS) Current visit: Yes Status: Acute Assessment and Plan: systemic inflammatory response syndrome without a clear source in a 36-year- old woman with a somewhat complex medical history as outlined above, possible underlying myelodysplastic syndrome, autoimmune disorder, and/or IBD, and/or immune deficiency. of note as well is her critical illness in march with septic shock and respiratory failure due to esbl e. coli which she states grew from her blood sputum and urine. she is placed in observation status in the critical care unit for serial physical and laboratory evaluation. I requested a crp and an esr to be performed with morning labs. would maintain a low threshold for broadening her antibiotic coverage significantly, as above her urinalysis in the emergency department was quite unremarkable. would also suggest touching base with dr. Larissa June with ID for additional input and to keep her in the loop on Laurence's readmission situation, which again appears quite similar to her May 01 admission to this facility. as an outpatient, one could certainly consider referral back to gastroenterology for consideration for small bowel capsule endoscopy, in attempts to definitively rule out inflammatory bowel disease (unless her cytogenetic testing from her recent bone marrow biopsy showed some light on her underlying systemic inflammatory process). plan of care was discussed with the patient at the time of my evaluation and she expressed understanding and a desire to proceed. further symptom medic supportive and diagnostic cares will be provided as the current workup, or changes in her clinical scenario, indicate. DVT Prophylaxis: SCD's Resuscitation Status: Full Code - Physician Narrative Physician: Sarah Murray MD Narrative: Date: 06/26/17 Time: 805 Mrs. Block is a 36 y/o woman whose history began in March. She had a UTI in mid March. Her urine culture on April 08 grew an ESBL Escherichia coli. Before those results were available, she was empirically given Cipro. She then traveled to [place] because she and her family were going to [place]. A couple of days later she felt that she was still having dysuria and right flank pain; she felt she was not getting better. She called back to her doctor's office to check on her urine culture results and was told that the only oral options were sulfa or Macrobid. She has a sulfa allergy and so she was given Macrobid which she filled at a pharmacy in [place]. She continued to not feel well and was awakened in the middle of the night by her Apple watch because her pulse was 144. Her family took her to the hospital in [place]. Her white blood cell count was about 21,000. She was admitted and developed sepsis with acute respiratory failure necessitating intubation. Her blood cultures were positive for ESBL Escherichia coli per records. She also developed ARDS and was treated with steroids for that as well as doxycycline. She had some elevated liver function tests noted which was thought to possibly be due to the doxycycline. She was intubated for about 6 days and then extubated. She had a CT of the chest looking for pulmonary embolus which was negative by report. She also had a CT of the abdomen and pelvis which per her report was unremarkable. She was discharged near the end of March and was treated with meropenem which was changed to ertapenem on discharge. That course was completed on 04/30. She was seen by Dr. June to establish care and to follow up from her recent sepsis. She reports that she has a history of recurrent UTIs about every 8 months or so. A few hours after she left Dr. June' office on 05/01 she reported that she had started having some low back pain and felt fatigued. She called Dr. Khalil , her PCP, who felt that she should go to the ER to be evaluated. In the emergency room her white blood cell count was mildly elevated but this was actually improved from previously and her lactate was noted to be 3.4. She was tachycardic but not febrile. Dr. Lizarraga from the ER called Dr. June and the decision was made to admit her for observation (05/01/17). She had blood cultures drawn which were negative. Her UA 05/01 was completely negative. She was started on meropenem. On 05/02/17 she reported feeling "fine". WBC was normal. She underwent a bone marrow biopsy on 06/17/17 which was relatively unremarkable. It did show low iron stores and few Gaucher-like cells. She had urinary symptoms twice since her last admission. A UA done on 05/26 which only grew mixed bacterial carmen. She has a h/o chronic inflammatory issues and sees Dr. Wagner (Certified Executive Chef at [facility] in [place]) but no definitive diagnosis has ever been established. She has had intermittent arthritis issues including sacroiliitis, and intermittent bouts of abdominal pain with diarrhea with hematochezia on 2 occasions. She has had colonoscopies and several egds without abnormal findings. She presented to the emergency department early this am with urinary frequency and dysuria, fever of 101 at home, and pulse rate of 140, which she was aware of in part due to her apple watch. This is similar to her May 01 presentation. Her lactic acid was only 2.1. She was started on macrobid and had taken 2 doses prior to her ED presentation. In the emergency department, her urinalysis looks essentially perfect tonight, granted she has been on macrobid, but this appears to be working as there is no evidence of cystitis now. The urine culture from yesterday is growing mixed bacterial carmen only. Her WBC is 12.3. Temp in ED 100.7. She was tachycardic at 136bpm. It was felt that this represented a systemic inflammatory response syndrome, no source can be found. A CT of the abdomen and pelvis was done that showed new nonspecific minimal perinephric fat stranding adjacent to the left kidney suggesting infection or inflammation. This could be due to pyelonephritis however the patient's urinalysis appears essentially normal and Hepatic steatosis. A CTA of the chest was also done which showed no pulmonary embolus or acute disease process seen in the chest. When seen by me this morning she just not feeling well. She is achy, she has been having and is having left flank pain. She has some mild nonspecific discomfort in her abdomen that increases with palpation particularly on the left upper quadrant and more so in the suprapubic area. She denies any rashes. She is currently afebrile. Her pulses are in the upper 90s low 100s. She reports she always runs in the 90s even at rest and always has. She denies any chest pain or pressure. She denies palpitations. She does not have an appetite and is complaining of nausea. She denies any problems with lower extremity edema. Her white blood count remains elevated despite IV fluids. Her neutrophils are 73,000, consistent with last night's. Her ESR is pending but her CRP is elevated at 46.2. Looking at her previous CRP levels this is higher than she has been in the past. Lactate was normal admission at 2.1 is down to 1.4 now. Urinalysis was completely benign. Serology was again completely negative. Blood cultures are pending. I did speak with Dr. June and informed her that Ms. Block was back in. I also told her about the mild fat stranding around left kidney and her fevers. She recommended placing the patient on meropenem and awaiting results of blood cultures. If blood cultures are negative after a couple days then stop everything and she could go home. Past medical history: Current medications: Celebrex 200 mg daily Certirizine 10 mg daily Viorele BCPs Aleve 220 mg Q8 hours PRN Macrobid 100 mg BID omeprazole 20 mg daily Tylenol 1000 mg Q6 hours PRN Allergies: sulfa Medical history: chronic inflammation history of atypical Sjogren's GERD Surgical history: cholecystectomy wisdom tooth extraction egg retrieval times 2 for in vitro fertilization Social history: lives with her and children lifetime non-smoker no alcohol Family history: mom alive at 60 with hyperglycemia and multiple sclerosis which is very stable dad saliva 60, patient reports he is a functional alcoholic and also has underlying abnormal blood work one sister alive and well with a diagnosis of juvenile rheumatoid arthritis. Review of systems: all 14 point review of systems is negative except as noted in the history of present illness Physical exam: vital signs: temperature currently 99.4, pulse 99, respiration 21, blood pressure 159/86, 100% on room air Gen: alert and oriented. NAD. Pleasant and conversive Skin: warm and dry. HEENT: NC/AT PERRL, EOMI, sclera, lids and conjunctiva wnl. MMM. OP clear. Neck: supple, No JVD, Carotids 2+ without bruits. Lungs: clear, no rales, rhonchi or wheezes Heart: regular. Slightly tachycardic at times. Telemetry: ST Abdomen: obese, soft. ND. +BS. Tender to palpation diffusely but particularly in the right upper quadrant and suprapubic area MS: good strength and ROM. No edema. Neuro: no focal deficit Psy: appropriate mood and affect. Assessment and plan: Fever with left flank and suprapubic pain -history of ESBL E. coli UTIs -possible pyelonephritis given changes on CT of the abdomen and pelvis -will continue IV fluid -start meropenem per recommendations of Dr. June -await blood culture results -patient can transfer to floor today Chronic inflammatory process -continue her Celebrex Mildly abnormal bone marrow biopsy -will consult GERD -PPI Prophylaxis Lovenox and PPI Sepsis Assessment - Evaluation SIRS Criteria: temperature > 100.9, pulse > 90 beats/minute, WBC > 12,000 Severe Sepsis: lactate > 2.0 mg/dL Hospital Course Summary Disclaimer: The visit summary below is not to be considered part of the above Progress Note.
[2017-06-26] MEDS: FentaNYL 100 MCG/2 ML INJECTION IVP PRN ×4 (03:48→21:14)
[2017-06-26] MEDS: SALINE FLUSH 10ml SYRINGE IVF PRN ×2 (03:49→06:40)
[2017-06-26] MEDS: HYDROCODONE/APAP 5mg/325mg TABLET PO PRN ×2 (04:36→11:53)
[2017-06-26] MEDS: MORPHINE SULFATE 4mg INJECTION IVP PRN ×2 (06:39→10:40)
[2017-06-26] MEDS ORDERED: NITROFURANTOIN 100 MG PO SCH (08:00)
--- NOTE | 2017-06-26 08:04 | CT Scan Report ---
Indication: tachycardia PROCEDURE: CT angio pulm emboli: Encounter: Initial Comparison: CT chest dated June 04, 2017 Technique: Axial CT pulmonary angiographic phase images were performed through the chest after the administration of intravenous contrast. Coronal and Sagittal MIP reconstructed images were created and reviewed. Automated Exposure Control and Iterative Reconstruction dose reducing techniques were utilized. Contrast: Omnipaque 350 72 mL Findings: Pulmonary arteries: Exam is diagnostic to the segmental pulmonary arterial level. No filling defects identified to confirm a pulmonary embolus. Subsegmental pulmonary arteries are not well evaluated due to contrast bolus timing. Other findings: Interval decrease in the small areas of scarring in the right middle and lower lobes. The lungs are otherwise clear. No consolidative pneumonia, pleural effusion or pneumothorax. The central airways are patent. No axillary or mediastinal adenopathy. Heart size is normal. No pericardial effusion. The upper abdomen shows no acute findings. Impression: No pulmonary embolus or acute disease process seen in the chest. There is a preliminary report by [facility]. .
--- NOTE | 2017-06-26 08:21 | CT Scan Report ---
Indication: L Flank pain PROCEDURE: CT abdomen pelvis wo con: Encounter: Initial Comparison: CT abdomen dated May 02, 2017 Technique: Axial CT images were performed through the abdomen and pelvis without intravenous contrast. Coronal and sagittal two-dimensional reformats. Automated Exposure Control and Iterative Reconstruction dose reducing techniques were utilized. Findings: The lung bases are grossly clear. The liver shows diffuse decrease in attenuation consistent with fatty infiltration. No contour deforming liver mass. Gallbladder is surgically absent. The spleen, pancreas and adrenal glands are within normal limits. Left renal areas of cortical scarring. No stone disease or hydronephrosis in the kidneys. There is new mild perinephric fat stranding adjacent to the lower pole of the left kidney. No ureteral stones. Small pelvic phleboliths. Bladder is normal. Uterus and ovaries are normal. No free fluid. Moderate stool in the colon. No evidence of a bowel obstruction. The appendix is normal. Bone windows show no acute findings. Impression: 1. New nonspecific minimal perinephric fat stranding adjacent to the left kidney suggesting infection or inflammation. This could be due to pyelonephritis however the patient's urinalysis appears essentially normal. Recommend clinical and laboratory correlation. 2. Hepatic steatosis. There is a preliminary report by [facility]. The subtle fat stranding adjacent to the left kidney is not described in the preliminary report, but was called to the physician caring for the patient Dr. Murray at 0816 on June 26, 2017. .
--- NOTE | 2017-06-26 08:22 | XRay Report ---
Indication: fever. PROCEDURE: XR chest 1V: Encounter: Initial Comparison: Chest x-ray dated May 16, [address] dated June 26, 2017 FINDINGS: Subtle right basilar airspace opacity has improved. No new or worsening airspace disease. There is no pleural effusion or pneumothorax identified. The heart size, pulmonary vasculature and mediastinum are within normal limits. No significant skeletal abnormality is seen. IMPRESSION: No acute cardiopulmonary abnormality. .
[2017-06-26] MEDS: ACETAMINOPHEN 500 MG TABLET PO SCH ×3 (08:45→21:03)
[2017-06-26] MEDS: ONDANSETRON 4 MG/2 ML INJECTION IVP PRN (08:50)
[2017-06-26] MEDS ORDERED: NITROFURANTOIN MACROCRYSTAL PO SCH (09:00)
[2017-06-26] MEDS ORDERED: MEROPENEM 1 GM in NS 100 ML IV SCH (09:15)
[2017-06-26] MEDS: NS 1,000 ML IV SCH ×2 (09:46→21:02)
[2017-06-26] MEDS: MEROPENEM 1 GM in NS 50 ML IV SCH ×2 (09:47→16:46)
--- NOTE | 2017-06-26 12:47 | Consult Note ---
<Gavi Murillo - Last Filed: 06/26/17 16:22> Oncology HPI - Data of Consult Patient: known to practice within the last 3 years Consult date: 06/26/17 Requesting Physician: Sarah Murray MD Primary Care Provider: Swapna Khalil MD - Consult Narrative Reason for consult: fevers/recent bone marrow biopsy History of present illness: 36 year old female, well-known to Dr. Aburto was admitted last evening to [facility] with acute UTI, fever, and tachycardia. Patient has a history of UTI in March 2017, initially treated with Cipro, switched to Macrobid. She went to [place] on vacation while taking the Macrobid and developed urosepsis, and became critically ill with Escherichia coli urosepsis, complicated by ARDS and respiratory failure. Slowly recovered and has returned to work, but reports continues to have intermittent fatigue. at patient' s bedside, states she intermittently has nausea, no emesis. She was seen by Dr. Aburto June 11/2018 with persistent leukocytosis/neutrophilia. A bone marrow aspiration and biopsy with flow cytometry and cytogenetics was performed to rule out chronic myelogenous leukemia. Note has multiple other comorbidities including an underlying rheumatological issue which has evaded definitive diagnosis. Has chronically elevated inflammatory markers, intermittent arthritis with sacroiliitis. Has been diagnosed with atypical Sjogren's At time of intake, reclining in hospital bed. She is alert and oriented. Denies chest pain, cough, or shortness of air. Denies pain currently. Complains of persistent fatigue, intermittent nausea, no emesis. No diarrhea or constipation. Reports frequent, intermittent pain/swelling and left wrist, left ankle, denies currently. Review of Systems - Constitutional Constitutional: Present: fatigue, fever(s), weakness - EENT Ears: Absent: ear pain Mouth/Throat: Absent: sore throat - Cardiovascular Cardiovascular: Absent: chest pain, palpitations (subjectively reports tachycardia intermittently) - Respiratory Respiratory: Absent: cough, wheezing - Gastrointestinal Gastrointestinal: Present: nausea, vomiting - Genitourinary Genitourinary: Present: dysuria, urinary frequency, urinary urgency - Musculoskeletal Musculoskeletal: Present: joint swelling (chronic/intermittent in left wrist, left foot, left hip) - Integumentary/Breasts Integumentary: Absent: rash, wounds - Neurological Neurological: Absent: dizziness, headache(s) - Psychiatric Psychiatric: Absent: anxiety, depression PFSH Patient Stated Medical History Other HEENT Yes: Hx of atypical sjogren's Other Respiratory Yes: ARDS Gastroesophageal Reflux Yes Disease Hx Urinary Tract Infection Yes Anemia Yes: borderline Sepsis Yes Other Infectious Yes: ESBL PRODUCING E.COLI Other Yes: BONE MARROW BIOPSY Medical History Updates: essentially all as outlined above. she underwent in vitro fertilization after significant difficulty in becoming . atypical sjogren's. a chronic underlying systemic inflammatory process, not otherwise specified as outlined above Surgical History: cholecystectomy, c section, egg harvest for in vitro fertilization Family History: Grandmother with leukemia diagnosis age 82. No other family history cancer. 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 @ [employer] Does patient use chewing tobacco?: No Current residence: Apartment/Private Home Medications Home Medications Medication Instructions Recorded Confirmed Type Cetirizine HCl [Zyrtec] 10 mg PO HS #0 02/04/12 06/25/17 History Omeprazole Magnesium 20 mg PO HS #0 02/04/12 06/25/17 History Celecoxib 200 mg PO HS 05/01/17 06/25/17 History Desog-E.estradiol/E.estradiol 1 tab PO HS 06/16/17 06/25/17 History [Viorele 28 Day Tablet] Naproxen Sodium [Aleve] 1 tab PO Q8H PRN 06/25/17 06/25/17 History Nitrofurantoin Macrocrystal 1 tab PO BID 06/25/17 06/25/17 History [Nitrofurantoin] Tylenol 1,000 mg PO Q6H 06/25/17 06/25/17 History Allergies Allergy/AdvReac Type Severity Reaction Status Date / Time Sulfa (Sulfonamide Allergy Intermediate HIVES Verified 06/26/17 04:08 Antibiotics) Exam Vital signs: Temperature 99.3 F 06/26/17 11:47 Pulse Rate 109 H 06/26/17 11:47 Respiratory Rate 18 06/26/17 11:47 Blood Pressure 145/85 H 06/26/17 11:47 Pulse Oximetry 98 06/26/17 11:47 - Constitutional no acute distress, obese - Routine HEENT Exam Head: Present: normocephalic Eye: Present: EOMI ENT: Present: mucous membranes moist - Routine Neck Exam Present: supple. Absent: lymphadenopathy - Routine Respiratory Exam Present: CTA bilaterally - Routine Cardiovascular Exam Present: RRR, no murmur - Routine Abdominal Exam Present: soft, non tender. Absent: mass (no mass or organomegaly, but difficult to assess secondary to body habitus) - Routine Extremities Exam Present: no edema, full ROM - Routine Back/Spine/Pelvis Exam Back/Spine: Absent: vertebral tenderness - Routine Skin Exam Present: intact, dry - Routine Neurological Exam Present: alert, oriented X3 - Routine Psychiatric Exam Present: normal affect, cooperative Oncology Results - Labs CBC & Chem 7: 06/26/17 03:33 06/26/17 03:33 Labs: Short CBC 06/26/17 Range/Units 03:33 WBC 12.7 H (4.5-11.0) T/MM3 Hgb 10.9 L (12-16) GM/DL Hct 33.8 L (36-46) % Plt Count 310 (130-400) T/MM3 BMP 06/26/17 03:33 Sodium 143 Potassium 3.6 Chloride 109 H Carbon Dioxide 22 BUN 6.0 L Creatinine 0.6 L Glucose 114 H Calcium 8.8 Assessment and Plan Assessment and Plan: Assessment 1. Systemic leukocytosis/neutrophilia. Bone marrow aspiration and biopsy with flow cytometry/cytogenetics has been performed. Awaiting final results. 2. History of recurrent bladder infection, recent urosepsis/March 2017, now with dysuria, urinary frequency. Awaiting urine culture results. Also had blood cultures performed Plan Continue supportive care, antibiotics. Dr. Rodriguez to see patient later today. <Danielito Rodriguez - Last Filed: 06/26/17 18:44> Oncology HPI - Data of Consult Requesting Physician: Sarah Murray MD Primary Care Provider: Swapna Khalil MD Exam Vital signs: Temperature 101.2 F H 06/26/17 15:41 Pulse Rate 120 H 06/26/17 15:41 Respiratory Rate 20 06/26/17 15:41 Blood Pressure 125/70 06/26/17 15:41 Pulse Oximetry 97 05/03/18 15:41 Oncology Results - Labs CBC & Chem 7: 06/26/17 03:33 06/26/17 03:33 Assessment and Plan Assessment and Plan: Patient examined, chart reviewed, I participated development of the plan of care of this patient. Discussed bone marrow results with Dr. Ospina. Cytogenetics are currently pending. BCR able was not done on the next 10 sequencing. Will obtain peripheral blood for BCR able. She also has not had quantitative immunoglobulins with recurrent infections will check immune globulins and serum protein electrophoresis. CANCA, PACNA and DIANA have been negative. Will obtain rheumatoid factor.
--- NOTE | 2017-06-26 13:29 | Progress Note ---
Progress Note: I was asked to check on Laurence juares/c she was c/o a scratchy throat. She thinks it's allergies but is also worried about another infection (ie strep), especially since the cause of her fever is still unknown. On exam, her TM's were clear, not bulging, and vergara in color with a satisfactory light reflex. There was a small effusion on the right. Her mucous membranes were moist and her posterior pharynx was mildly erythemic. Tonsils were not edematous but they were mildly erythematous. There were 2 pinpoint white-colored areas, 1 on each tonsil, not particularly pustular appearing. There was no cervical lymphadenopathy. A rapid strep was ordered.
[2017-06-26] MEDS: IBUPROFEN 400 MG TABLET PO PRN (14:06)
[2017-06-26] MEDS: Oxycodone *IR* 5 MG TABLET PO PRN ×2 (19:19→23:20)
[2017-06-26] MEDS: CELECOXIB 200 MG CAPSULE PO SCH (20:59)
[2017-06-26] MEDS: CETIRIZINE 10 MG TABLET PO SCH (20:59)
[2017-06-26] MEDS: [UNRECOGNIZED DRUG - OTHER] PO SCH (20:59)
[2017-06-26] MEDS ORDERED: NON-FORMULARY MEDICATION 1 EACH EACH (Cetirizine Hcl [Zyrtec] 10 MG) PO SCH (21:00)
[2017-06-26] MEDS ORDERED: OMEPRAZOLE 20 MG CAPSULE PO SCH (21:00)
[2017-06-26] MEDS ORDERED: OMEPRAZOLE MAGNESIUM 20 MG PO SCH (21:00)
[2017-06-26] MEDS: NAPROXEN 220 MG TABLET PO PRN (21:04)
[2017-06-27] MEDS: ONDANSETRON 4 MG/2 ML INJECTION IVP PRN (00:58)
[2017-06-27] MEDS: MEROPENEM 1 GM in NS 50 ML IV SCH ×3 (01:00→16:55)
[2017-06-27] MEDS: IBUPROFEN 400 MG TABLET PO PRN (01:57)
[2017-06-27] MEDS: ACETAMINOPHEN 500 MG TABLET PO SCH ×2 (02:01→10:00)
[2017-06-27] MEDS: FentaNYL 100 MCG/2 ML INJECTION IVP PRN (02:03)
[2017-06-27] MEDS: NAPROXEN 220 MG TABLET PO PRN (07:34)
[2017-06-27] MEDS: NS 1,000 ML IV SCH ×3 (07:35→19:37)
[2017-06-27] MEDS: Oxycodone *IR* 5 MG TABLET PO PRN ×2 (09:52→15:07)
[2017-06-27] MEDS ORDERED: ACETAMINOPHEN 500 MG TABLET PO PRN (10:07)
--- NOTE | 2017-06-27 10:25 | Progress Note ---
- Date 06/27/17 Subjective: Dulce Maria is seen today in follow up after her shower. She continues to have left flank pain with fever overnight. She denies having shortness of breath, chest pain or abdominal pain. She does continue to have urinary frequency without burning. She did note urine appeared to be somewhat concentrated this morning. Temperature max over the past 24 hours 101.2. Objective Vital signs: Temperature 97.8 F 06/27/17 08:00 Pulse Rate 96 06/27/17 08:00 Respiratory Rate 20 06/27/17 08:00 Blood Pressure 119/71 06/27/17 08:00 Pulse Oximetry 98 06/27/17 08:00 Height/Weight/BMI: Weight 122.1 kg - Constitutional Present: no acute distress, well nourished, well developed - Routine HEENT Exam Eye: Present: EOMI ENT: Present: mucous membranes moist, dentition normal - Routine Respiratory Exam Present: CTA bilaterally. Absent: wheezes - Routine Cardiovascular Exam Present: RRR, S1, S2. Absent: murmur - Routine Abdominal Exam Present: soft, normoactive bowel sounds, non distended. Absent: tenderness - Routine Extremities Exam Present: no edema - Routine Back/Spine/Pelvis Exam Back image: 1 - pain - Routine Skin Exam Present: intact, dry, warm - Routine Neurological Exam Present: alert, oriented X3, CN II-XII intact, moving all extremities - Routine Lymphatic Exam Lymphatic: Absent: adenopathy - Routine Psychiatric Exam Present: normal affect, normal thought process, cooperative Results - Labs CBC & Chem 7: 06/27/17 05:36 06/27/17 05:36 Assessment and Plan (1) Elevated lactic acid level Current visit: No Status: Acute (2) Systemic inflammatory response syndrome (SIRS) Current visit: Yes Status: Acute Assessment and Plan: Left flank pain with fever - Urine culture from 06/25 revels mixed carmen - Continue on meropenem -OxyCodone for pain control Suspect pyelonephritis - Repeat CT does reveal increased para nephrotic stranding consistent with probable pyelonephritis Leukocytosis -Pyelonephritis versus chronic inflammatory process Elevated CRP - Acute elevation on top of chronic inflammatory process Chronic Inflammatory process - Chronic Celebrex Mildly abnormal bone marrow biopsy -Appreciate consultation by Dr. Nanny BRITTON -Continue home Prilosec DVT Prophylaxis: SCD's GI Prophylaxis: other (Prilosec) Resuscitation Status: Full Code - Physician Narrative Physician: Sarah Murray MD Narrative: Date: 06/27/17 Time: 1343 Ms. Block was independently interviewed and examined by me. She had a very rough night with fevers and generalized aching. Her white blood count has slowly trended up. She continues on meropenem. Her blood cultures are still negative to date. Her left flank pain is slightly better today. Her suprapubic pain is also mildly improved. There was a gm neg dafne on the prior UA so that is being plated to be identified. She is feeling much better this am. She did report a pruritic rash on her back. topical Benadryl ordered. PE: Gen: alert and oriented. NAD. Pleasant and conversive Skin: warm and dry. HEENT: NC/AT PERRL, EOMI, sclera, lids and conjunctiva wnl. MMM. OP clear. Neck: supple, No JVD, Carotids 2+ without bruits. Lungs: clear, no rales, rhonchi or wheezes Heart: regular. Slightly tachycardic at times. Telemetry: ST Abdomen: obese, soft. ND. +BS. MS: good strength and ROM. No edema. Neuro: no focal deficit Psy: appropriate mood and affect. Assessment and plan: Fever with left flank and suprapubic pain -history of ESBL E. coli UTIs -possible pyelonephritis given changes on CT of the abdomen and pelvis -will continue IV fluid -start meropenem per recommendations of Dr. June -await blood culture results -white blood count continues to slowly rise. -CRP markedly elevated today Chronic inflammatory process -continue her Celebrex -will repeat DIANA, C-ANCA, P-ANCA, Compliment, Phospholipids Mildly abnormal bone marrow biopsy -will consult Dr.Nanney BRITTON -PPI Prophylaxis Lovenox and PPI I have reviewed the patient's labs, notes and imaging. I have discussed the patient with Dr. Rodriguez. Patient was also reviewed with Kaylah James nurse practitioner and I agree with the assessment and plan as noted above. Hospital Course Summary Disclaimer: The visit summary below is not to be considered part of the above Progress Note. Hospital Course: 06/26/17 systemic inflammatory response syndrome without a clear source in a 36-year- old woman with a somewhat complex medical history as outlined above, possible underlying myelodysplastic syndrome, autoimmune disorder, and/or IBD, and/or immune deficiency. of note as well is her critical illness in march with septic shock and respiratory failure due to esbl e. coli which she states grew from her blood sputum and urine. she is placed in observation status in the critical care unit for serial physical and laboratory evaluation. I requested a crp and an esr to be performed with morning labs. would maintain a low threshold for broadening her antibiotic coverage significantly, as above her urinalysis in the emergency department was quite unremarkable. would also suggest touching base with dr. Larissa June with ID for additional input and to keep her in the loop on Laurence's readmission situation, which again appears quite similar to her May 01 admission to this facility. as an outpatient, one could certainly consider referral back to gastroenterology for consideration for small bowel capsule endoscopy, in attempts to definitively rule out inflammatory bowel disease (unless her cytogenetic testing from her recent bone marrow biopsy showed some light on her underlying systemic inflammatory process). plan of care was discussed with the patient at the time of my evaluation and she expressed understanding and a desire to proceed. further symptom medic supportive and diagnostic cares will be provided as the current workup, or changes in her clinical scenario, indicate. 06/27/17 Left flank pain with fever - Urine culture from 06/25 revels mixed carmen - Continue on meropenem -OxyCodone for pain control Suspect pyelonephritis - Repeat CT does reveal increased para nephrotic stranding consistent with probable pyelonephritis Leukocytosis -Pyelonephritis versus chronic inflammatory process Elevated CRP - Acute elevation on top of chronic inflammatory process Chronic Inflammatory process - Chronic Celebrex Mildly abnormal bone marrow biopsy -Appreciate consultation by Dr. Nanny BRITTON -[facility]
--- NOTE | 2017-06-27 11:53 | Progress Note ---
<Gavi Murillo - Last Filed: 06/27/17 15:58> Oncology Subjective Reclining in hospital bed. States had a rough night with fever, chills, left flank pain. Those symptoms resolved since this morning; states " The last 12 hours have been much better." Denies nausea, vomiting. No diarrhea or constipation. No new aches or pains General: + fever, + chills decreased appetite Eyes: No redness, no pain, no diplopia ENT: No mouth sores, no trouble swallowing Cardiac: No chest pain no palpitations Pulmonary: No cough, no shortness of breath, no wheezing Abdomen: No pain, no nausea vomiting, no diarrhea or constipation : No urgency, frequency, dysuria, or hematuria Musculoskeletal: left flank pain during night. None since Neurological: No headaches, no focal weakness Skin: No rash, no sores Psychiatric: No anxiety, no depression Exam Vital signs: Temperature 97.8 F 06/27/17 08:00 Pulse Rate 96 06/27/17 08:00 Respiratory Rate 20 06/27/17 08:00 Blood Pressure 119/71 06/27/17 08:00 Pulse Oximetry 98 06/27/17 08:00 - Constitutional no acute distress, obese, cooperative - Routine HEENT Exam Head: Present: normocephalic Eye: Present: EOMI ENT: Present: mucous membranes moist - Routine Neck Exam Present: supple. Absent: lymphadenopathy - Routine Respiratory Exam Present: CTA bilaterally. Absent: wheezes, crackles - Routine Cardiovascular Exam Present: RRR, no murmur - Routine Abdominal Exam Present: soft, normoactive bowel sounds, non tender - Routine Extremities Exam Present: no edema, full ROM - Routine Back/Spine/Pelvis Exam Back/Spine: Absent: CVA tenderness, paraspinal tenderness - Routine Skin Exam Present: intact, dry, warm - Routine Neurological Exam Present: alert, oriented X3, normal speech - Routine Psychiatric Exam Present: normal affect, cooperative Oncology Results - Labs CBC & Chem 7: 06/27/17 05:36 06/27/17 05:36 Labs: Short CBC 06/27/17 Range/Units 05:36 WBC 13.1 H (4.5-11.0) T/MM3 Hgb 10.8 L (12-16) GM/DL Hct 33.2 L (36-46) % Plt Count 301 (130-400) T/MM3 [facility] 06/27/17 05:36 Sodium 141 Potassium 3.4 L Chloride 104 Carbon Dioxide 27 BUN 4.0 L Creatinine 0.6 L Glucose 109 Calcium 9.0 - Impressions Date of Exam: 06/26/17 Ordering Provider: Vikram Bass DO Type of Exam(s): CT angio pulm emboli Reason for Exam(s): tachycardia Indication: tachycardia PROCEDURE: CT angio pulm emboli: Date of Exam: 06/27/17 Ordering Provider: Kaylah James APRN Type of Exam(s): US renal BI Reason for Exam(s): ? left Pyleo? Indication: Left flank pain, questioning left pyelonephritis. PROCEDURE: US renal BI: Encounter: Initial Comparison: CT abdomen and pelvis dated June 26, 2017 Technique: Grayscale and color Doppler sonographic imaging of both kidneys was performed. FINDINGS: Both kidneys are present with normal cortical thickness and echogenicity. No evidence for collecting system dilatation, contour deforming mass, nephrolithiasis, or abnormal perinephric fluid collection. The right kidney measures 13.1 cm in length, and the left kidney measures 12.2 cm in length. IMPRESSION: Normal renal sonogram. . Assessment and Plan Assessment and Plan: Assessment 1. Systemic leukocytosis/neutrophilia. Bone marrow aspiration and biopsy with flow cytometry/cytogenetics has been performed. Awaiting cytogenics. 2. History of recurrent bladder infection, recent urosepsis/March 2017, now with dysuria, urinary frequency. Awaiting urine culture results; preliminary blood cultures negative after 24 hours Plan Continue supportive care, antibiotics. Immunoglobulins all WNL. Awaiting cytology, results from SPE, P-ANCA, C-ANCA. Will follow. - Time Spent With Patient Total time spent is greater than 50% in coordination of care (as documented) at patient's floor/unit and/or counseling patient: less than 15 minutes <Danielito Rodriguez - Last Filed: 06/28/17 07:19> Exam Vital signs: Temperature 98.1 F 06/27/17 12:00 Pulse Rate 96 06/27/17 12:00 Respiratory Rate 16 06/27/17 12:00 Blood Pressure 125/74 06/27/17 12:00 Pulse Oximetry 98 05/04/18 12:00 Oncology Results - Labs CBC & Chem 7: 06/28/17 04:27 06/28/17 04:27 Labs: Short CBC 06/27/17 Range/Units 05:36 WBC 13.1 H (4.5-11.0) T/MM3 Hgb 10.8 L (12-16) GM/DL Hct 33.2 L (36-46) % Plt Count 301 (130-400) T/MM3 BMP 06/27/17 05:36 Sodium 141 Potassium 3.4 L Chloride 104 Carbon Dioxide 27 BUN 4.0 L Creatinine 0.6 L Glucose 109 Calcium 9.0 Assessment and Plan Assessment and Plan: Patient seen, chart reviewed. Discussed with hospitalists. ABC higher at 13K and CRP much higher. Feels better and temp decreasing. Immune globulins normal. Await BCR ABL. Discussed mixed carmen found in urine and Gm neg dafne is presnet. Will ID and check sensitivities. History of EBLS E Coli in April. Will see again on Friday. Dr. Roldan is carbon paper coating supervisor this weekend and will see if called. - Time Spent With Patient Total time spent is greater than 50% in coordination of care (as documented) at patient's floor/unit and/or counseling patient:
[2017-06-27] MEDS: DIPHENHYDRAMINE 2% CREAM 28gm TOP PRN ×2 (13:34→20:48)
--- NOTE | 2017-06-27 14:33 | Ultrasound Report ---
Indication: Left flank pain, questioning left pyelonephritis. PROCEDURE: US renal BI: Encounter: Initial Comparison: CT abdomen and pelvis dated June 26, 2017 Technique: Grayscale and color Doppler sonographic imaging of both kidneys was performed. FINDINGS: Both kidneys are present with normal cortical thickness and echogenicity. No evidence for collecting system dilatation, contour deforming mass, nephrolithiasis, or abnormal perinephric fluid collection. The right kidney measures 13.1 cm in length, and the left kidney measures 12.2 cm in length. IMPRESSION: Normal renal sonogram. .
[2017-06-27] MEDS ORDERED: GI COCKTAIL 30 ML PO ONE (17:35)
--- NOTE | 2017-06-27 17:54 | Progress Note ---
Progress Note: 1730- into room to reexamine patient as nursing staff reports chest pressure. EKG is obtained does not show any acute ischemic changes. Patient states that possibly pressure is related to GERD. She is chronically on omeprazole and has not missed any current doses. She denies feeling anxious, however, does have some worry regarding acute process and etiology. He was noted earlier in the day to have a rash to her upper back. Benadryl cream was placed over the rash. Upon re-examination rash does appear to be improved. Did not have the appearance of a drug like reaction, rather a folliculitis. ill obtain troponin at this time. Did ask nursing staff to give patient a GI cocktail to see if this helps alleviate chest pressure. EKG reviewed with attending, Dr. Murray.
[2017-06-27] MEDS: HYDROCODONE/APAP 5mg/325mg TABLET PO PRN (18:11)
[2017-06-27] MEDS: Oxycodone *IR* 5 MG TABLET PO SCH ×2 (19:37→23:03)
[2017-06-27] MEDS: CETIRIZINE 10 MG TABLET PO SCH (20:47)
[2017-06-27] MEDS: CELECOXIB 200 MG CAPSULE PO SCH (20:47)
[2017-06-27] MEDS: [UNRECOGNIZED DRUG - OTHER] PO SCH (20:48)
[2017-06-28] MEDS: MEROPENEM 1 GM in NS 50 ML IV SCH ×3 (00:43→19:00)
[2017-06-28] MEDS: Oxycodone *IR* 5 MG TABLET PO SCH ×6 (03:26→22:56)
[2017-06-28] MEDS: NS 1,000 ML IV SCH ×2 (06:05→16:45)
[2017-06-28] MEDS: PANTOPRAZOLE 40 MG TABLET PO SCH ×2 (06:16→19:07)
--- NOTE | 2017-06-28 10:10 | Progress Note ---
- Date 06/28/17 Subjective: Mckayla is a 36 y/o woman whose history began in March. She had a UTI in mid March. Her urine culture on April 08 grew an ESBL Escherichia coli. Before those results were available, she was empirically given Cipro. She then traveled to [place] because she and her family were going to [id number]. A couple of days later she felt that she was still having dysuria and right flank pain; she felt she was not getting better. She called back to her doctor's office to check on her urine culture results and was told that the only oral options were sulfa or Macrobid. She has a sulfa allergy and so she was given Macrobid which she filled at a pharmacy in [place]. She continued to not feel well and was awakened in the middle of the night by her Apple watch because her pulse was 144. Her family took her to the hospital in [place]. Her white blood cell count was about 21,000. She was admitted and developed sepsis with acute respiratory failure necessitating intubation. Her blood cultures were positive for ESBL Escherichia coli per records. She also developed ARDS and was treated with steroids for that as well as doxycycline. She had some elevated liver function tests noted which was thought to possibly be due to the doxycycline. She was intubated for about 6 days and then extubated. She had a CT of the chest looking for pulmonary embolus which was negative by report. She also had a CT of the abdomen and pelvis which per her report was unremarkable. She was discharged near the end of March and was treated with meropenem which was changed to ertapenem on discharge. That course was completed on 04/30. She was seen by Dr. June to establish care and to follow up from her recent sepsis. She reports that she has a history of recurrent UTIs about every 8 months or so. A few hours after she left Dr. June' office on 05/01 she reported that she had started having some low back pain and felt fatigued. She called Dr. Khalil , her PCP, who felt that she should go to the ER to be evaluated. In the emergency room her white blood cell count was mildly elevated but this was actually improved from previously and her lactate was noted to be 3.4. She was tachycardic but not febrile. Dr. Lizarraga from the ER called Dr. June and the decision was made to admit her for observation (05/01/17). She had blood cultures drawn which were negative. Her UA 05/01 was completely negative. She was started on meropenem. On 05/02/17 she reported feeling "fine". WBC was normal. She underwent a bone marrow biopsy on 06/17/17 which was relatively unremarkable. It did show low iron stores and few Gaucher-like cells. She had urinary symptoms twice since her last admission. A UA done on 05/26 which only grew mixed bacterial carmen. She has a h/o chronic inflammatory issues and sees Dr. Wagner ([facility] Inspector at [facility] in [place]) but no definitive diagnosis has ever been established. She has had intermittent arthritis issues including sacroiliitis, and intermittent bouts of abdominal pain with diarrhea with hematochezia on 2 occasions. She has had colonoscopies and several egds without abnormal findings. She presented to the emergency department early this am with urinary frequency and dysuria, fever of 101 at home, and pulse rate of 140, which she was aware of in part due to her apple watch. This is similar to her May 01 presentation. Her lactic acid was only 2.1. She was started on macrobid and had taken 2 doses prior to her ED presentation. In the emergency department, her urinalysis looks essentially perfect tonight, granted she has been on macrobid, but this appears to be working as there is no evidence of cystitis now. The urine culture from yesterday is growing mixed bacterial carmen only. Her WBC is 12.3. Temp in ED 100.7. She was tachycardic at 136bpm. It was felt that this represented a systemic inflammatory response syndrome, no source can be found. A CT of the abdomen and pelvis was done that showed new nonspecific minimal perinephric fat stranding adjacent to the left kidney suggesting infection or inflammation. This could be due to pyelonephritis however the patient's urinalysis appears essentially normal and Hepatic steatosis. A CTA of the chest was also done which showed no pulmonary embolus or acute disease process seen in the chest. 06/28/17 When seen by me this morning she is feeling better. She did not spike any fevers overnight. She still has some mild discomfort in the left flank pain and suprapubic area but it has progressively improved since admission. Her white blood count normalized this morning. She has been less tacky running in the upper 90s low 100 still. She has had no further chest pressure since yesterday' s event. She denies palpitations. Her nausea has improved. She denies dysuria. She denies any problems with lower extremity edema. Objective Vital signs: Temperature 97.0 F 06/28/17 08:40 Pulse Rate 88 06/28/17 08:40 Respiratory Rate 16 06/28/17 08:40 Blood Pressure 121/66 06/28/17 08:40 Pulse Oximetry 97 06/28/17 08:40 Height/Weight/BMI: Weight 124 kg Comments: Gen: alert and oriented. NAD. Pleasant and conversive Skin: warm and dry. HEENT: NC/AT PERRL, EOMI, sclera, lids and conjunctiva wnl. MMM. OP clear. Neck: supple, No JVD, Carotids 2+ without bruits. Lungs: clear, no rales, rhonchi or wheezes Heart: regular. Slightly tachycardic at times. Telemetry: ST Abdomen: obese, soft. ND. +BS. MS: good strength and ROM. No edema. Neuro: no focal deficit Psy: appropriate mood and affect. Results - Labs CBC & Chem 7: 06/28/17 04:27 06/28/17 04:27 Assessment and Plan (1) Elevated lactic acid level Current visit: No Status: Acute (2) Systemic inflammatory response syndrome (SIRS) Current visit: Yes Status: Acute Assessment and Plan: Left flank pain with fever - history of ESBL E. coli UTIs - Urine culture from 06/25 revealed enterobacter - Continue on meropenem - OxyCodone for pain control Suspect pyelonephritis - Repeat CT does reveal increased para nephrotic stranding consistent with probable pyelonephritis - Renal U/S did not show anything abnormal - continue on Meropenem - Blood cx NGTD Leukocytosis -Pyelonephritis versus chronic inflammatory process -Normalized this am -repeat in am. Elevated CRP -Will repeat in am Chronic Inflammatory process - Chronic Celebrex Mildly abnormal bone marrow biopsy -Appreciate consultation by Dr. Rodriguez GERD -Switch to protonix bid Prophylaxis -Lovenox and PPI - Physician Narrative Narrative: Date: 06/28/17 Time: 1007 Hospital Course Summary Disclaimer: The visit summary below is not to be considered part of the above Progress Note. Hospital Course: 06/26/17 systemic inflammatory response syndrome without a clear source in a 36-year- old woman with a somewhat complex medical history as outlined above, possible underlying myelodysplastic syndrome, autoimmune disorder, and/or IBD, and/or immune deficiency. of note as well is her critical illness in march with septic shock and respiratory failure due to esbl e. coli which she states grew from her blood sputum and urine. she is placed in observation status in the critical care unit for serial physical and laboratory evaluation. I requested a crp and an esr to be performed with morning labs. would maintain a low threshold for broadening her antibiotic coverage significantly, as above her urinalysis in the emergency department was quite unremarkable. would also suggest touching base with dr. Larissa June with ID for additional input and to keep her in the loop on Laurence's readmission situation, which again appears quite similar to her May 01 admission to this facility. as an outpatient, one could certainly consider referral back to gastroenterology for consideration for small bowel capsule endoscopy, in attempts to definitively rule out inflammatory bowel disease (unless her cytogenetic testing from her recent bone marrow biopsy showed some light on her underlying systemic inflammatory process). plan of care was discussed with the patient at the time of my evaluation and she expressed understanding and a desire to proceed. further symptom medic supportive and diagnostic cares will be provided as the current workup, or changes in her clinical scenario, indicate. 06/27/17 Left flank pain with fever - Urine culture from 06/25 revels mixed carmen - Continue on meropenem -OxyCodone for pain control Suspect pyelonephritis - Repeat CT does reveal increased para nephrotic stranding consistent with probable pyelonephritis Leukocytosis -Pyelonephritis versus chronic inflammatory process Elevated CRP - Acute elevation on top of chronic inflammatory process Chronic Inflammatory process - Chronic Celebrex Mildly abnormal bone marrow biopsy -Appreciate consultation by Dr. Nanny BRITTON -Continue home [facility]
[2017-06-28] MEDS: DIPHENHYDRAMINE 2% CREAM 28gm TOP PRN ×2 (10:32→19:01)
[2017-06-28] MEDS: [UNRECOGNIZED DRUG - OTHER] PO SCH (20:45)
[2017-06-28] MEDS: CETIRIZINE 10 MG TABLET PO SCH (20:45)
[2017-06-28] MEDS: CELECOXIB 200 MG CAPSULE PO SCH (20:45)
[2017-06-29] MEDS: MEROPENEM 1 GM in NS 50 ML IV SCH ×3 (01:35→17:59)
[2017-06-29] MEDS: Oxycodone *IR* 5 MG TABLET PO SCH ×6 (03:38→21:45)
[2017-06-29] MEDS: NS 1,000 ML IV SCH ×3 (03:45→19:46)
[2017-06-29] MEDS: PANTOPRAZOLE 40 MG TABLET PO SCH ×2 (06:08→17:58)
--- NOTE | 2017-06-29 11:53 | Progress Note ---
Oncology Subjective no new c/o. pt on iv antibiotics. afeb, comfy. eating well,. visiting with friends. Exam Vital signs: Temperature 98.5 F 06/29/17 11:25 Pulse Rate 92 06/29/17 11:25 Respiratory Rate 16 06/29/17 11:25 Blood Pressure 119/72 06/29/17 11:25 Pulse Oximetry 99 06/29/17 11:25 - Constitutional no acute distress, well nourished - Routine HEENT Exam Head: Present: normocephalic, atraumatic Eye: Present: EOMI, PERRL ENT: Present: mucous membranes moist, dentition normal - Routine Respiratory Exam Present: CTA bilaterally. Absent: dyspnea - Routine Cardiovascular Exam Present: RRR, no murmur - Routine Abdominal Exam Present: soft, non tender - Routine Extremities Exam Absent: cyanosis, clubbing, edema Oncology Results - Labs CBC & Chem 7: 06/29/17 04:19 06/29/17 04:19 Labs: Short CBC 06/29/17 Range/Units 04:19 WBC 10.0 (4.5-11.0) T/MM3 Hgb 10.5 L (12-16) GM/DL Hct 32.3 L (36-46) % Plt Count 314 (130-400) T/MM3 BMP 06/29/17 04:19 Sodium 143 Potassium 3.7 Chloride 107 Carbon Dioxide 26 BUN 5.0 L Creatinine 0.5 L Glucose 103 Calcium 8.8 Home Medications Cetirizine HCl [Zyrtec] 10 mg PO HS #0 02/04/12 [History Confirmed 06/25/17] Omeprazole Magnesium 20 mg PO HS #0 02/04/12 [History Confirmed 06/25/17] Celecoxib 200 mg PO HS 05/01/17 [History Confirmed 06/25/17] Desog-E.estradiol/E.estradiol [Viorele 28 Day Tablet] 1 tab PO HS 06/16/17 [ History Confirmed 06/25/17] Naproxen Sodium [Aleve] 1 tab PO Q8H PRN 06/25/17 [History Confirmed 06/25/17] Nitrofurantoin Macrocrystal [Nitrofurantoin] 1 tab PO BID 06/25/17 [History Confirmed 06/25/17] Tylenol 1,000 mg PO Q6H 06/25/17 [History Confirmed 06/25/17] Home Medications Acetaminophen (Tylenol) 1,000 mg PO Q6HR PRN PRN Reason: fever Hydrocodone Bitart/Acetaminophen ([place] 5/325) 1 tab PO Q6H PRN PRN Reason: Pain Last Admin: 06/27/17 18:11 Dose: 1 tab Celecoxib (Celebrex) 200 mg PO [facility] Last Admin: 06/28/17 20:45 Dose: 200 mg Cetirizine HCl (Zyrtec) 10 mg PO [facility] Last Admin: 06/28/17 20:45 Dose: 10 mg Fentanyl (Fentanyl) 50 mcg IVP Q1HR PRN Last Admin: 06/27/17 02:03 Dose: 50 mcg Meropenem 1 gm/ Sodium (Chloride) 50 mls @ 200 mls/hr IV Q8H [facility] Last Infusion: 06/29/17 09:57 Dose: Infused Sodium Chloride (Normal Saline) 1,000 mls @ 100 mls/hr IV .Q10H [facility] Last Infusion: 06/29/17 09:58 Dose: 100 mls/hr Ibuprofen (Motrin) 400 mg PO Q8H PRN PRN Reason: Pain Last Admin: 06/27/17 01:57 Dose: 400 mg Naproxen (Aleve (Naproxen) 220 Mg) 220 mg PO Q8H PRN PRN Reason: Pain Last Admin: 06/27/17 07:34 Dose: 220 mg --Pom--Viorele 28 (Day Tablets) 1 tab PO [facility] Last Admin: 06/28/17 20:45 Dose: 1 tab Ondansetron HCl (Zofran) 4 mg IVP Q6H PRN PRN Reason: Nausea &/or vomiting Last Admin: 06/27/17 00:58 Dose: 4 mg Oxycodone HCl (Roxicodone *Ir*) 5 mg PO Q4H [facility] Last Admin: 06/29/17 11:40 Dose: Not Given Pantoprazole Sodium (Protonix Tab) 40 mg PO ACBID [facility] Last Admin: 06/29/17 06:08 Dose: 40 mg Senna/Docusate Sodium (Senna Plus Tablet) 1 tab PO BID PRN PRN Reason: Constipation Sodium Chloride (Iv Flush) 10 - 80 ml IVF PRN PRN PRN Reason: Flushing Last Admin: 06/26/17 06:40 Dose: 10 ml Zinc Acetate/Diphenhydramine (Benadryl Extra Strength Cream) 1 applic TOP BID PRN PRN Reason: Itching Last Admin: 06/28/17 19:01 Dose: 1 applic Intake & Output 06/27/17 06/28/17 06/29/17 06/30/17 06:59 06:59 06:59 06:59 Intake Total 3041.667 / 3041.667 4013.333 / 4013.333 3090.000 / 3090.000 645 / 645 Output Total 5450 / 5450 5050 / 5050 3475 / 3475 1500 / 1500 Balance -2408.333 / -2408.333 -1036.667 / -1036.667 -385.000 / -385.000 -855 / - 855 Weight 123.9 kg 122.1 kg 124 kg 123.2 kg Laboratory Results - last 48 hr 06/27/17 06/27/17 06/27/17 05:36 14:41 17:27 WBC RBC Hgb Hct MCV MCH MCHC RDW Std Deviation Plt Count MPV Immature Gran % (Auto) Neut % (Auto) Lymph % (Auto) Mathews % (Auto) Eos % (Auto) Baso % (Auto) Neut # (Auto) Lymph # (Auto) Mathews # (Auto) Eos # (Auto) Baso # (Auto) Abs Immat Gran (auto) Turbidity Sodium Potassium Chloride Carbon Dioxide Anion Gap BUN Creatinine GFR Calculation BUN/Creatinine Ratio Glucose Calculated Osmolality Calcium Magnesium Icterus Index Troponin I 0.014 C-Reactive Protein Serum Total Protein 6.1 Albumin % (PEP) 48.5 L Albumin (PEP) 3.0 Mnqwz-8-Cvonirqmd 0.5 Udhez-9-Fvpnyiaxr (%) 7.6 Gfwdw-3-Azimdnavt 0.9 Puxke-8-Pqwoovvbf (%) 14.1 Gtsm-3-Ilinjcnz 0.5 Ibld-3-Wqiutwve (%) 8.2 Oxmj-9-Qglpuurb 0.4 Bdrz-3-Eqffpuxd (%) 6.6 Gamma Globulins 0.9 Gamma Globulins (%) 15.0 PEP Comment see below Specimen Hemolysis 16 Rheumatoid Factor <15 Complement C3 202 H Complement C4 32 06/28/17 06/28/17 06/29/17 04:27 04:27 04:19 WBC 10.3 10.0 RBC 4.05 3.97 L Hgb 10.4 L 10.5 L Hct 33.0 L 32.3 L MCV 81.5 81.4 MCH 25.7 L 26.4 MCHC 31.5 32.5 RDW Std Deviation 43.7 42.7 Plt Count 290 314 MPV 10.1 10.1 Immature Gran % (Auto) 0.3 0.3 Neut % (Auto) 62.6 62.5 Lymph % (Auto) 26.9 29.1 Mathews % (Auto) 8.3 5.8 Eos % (Auto) 1.7 2.1 Baso % (Auto) 0.2 0.2 Neut # (Auto) 6.5 6.2 Lymph # (Auto) 2.8 2.9 Mathews # (Auto) 0.9 H 0.6 Eos # (Auto) 0.2 0.2 Baso # (Auto) 0.0 0.0 Abs Immat Gran (auto) 0.03 0.03 Turbidity < 20 Sodium 142 Potassium 3.9 Chloride 107 Carbon Dioxide 26 Anion Gap 9 BUN 5.0 L Creatinine 0.5 L GFR Calculation 140 BUN/Creatinine Ratio 10 Glucose 102 Calculated Osmolality 270 Calcium 8.7 Magnesium Icterus Index < 2 Troponin I C-Reactive Protein 162.9 H Serum Total Protein Albumin % (PEP) Albumin (PEP) Dpmkd-4-Rewfqtqvr Yexpk-2-Ocimhxjtw (%) Lhvfm-7-Rrunuflkj Eliyi-9-Bikmycwrs (%) Bxku-3-Zkxnrria Odha-1-Ojlkllww (%) Jqgr-3-Bvjnkrrz Vwky-6-Ohzztteu (%) Gamma Globulins Gamma Globulins (%) PEP Comment Specimen Hemolysis < 15 Rheumatoid Factor Complement C3 Complement C4 06/29/17 04:19 WBC RBC Hgb Hct MCV MCH MCHC RDW Std Deviation Plt Count MPV Immature Gran % (Auto) Neut % (Auto) Lymph % (Auto) Mathews % (Auto) Eos % (Auto) Baso % (Auto) Neut # (Auto) Lymph # (Auto) Mathews # (Auto) Eos # (Auto) Baso # (Auto) Abs Immat Gran (auto) Turbidity < 20 Sodium 143 Potassium 3.7 Chloride 107 Carbon Dioxide 26 Anion Gap 10 BUN 5.0 L Creatinine 0.5 L GFR Calculation 140 BUN/Creatinine Ratio 10 Glucose 103 Calculated Osmolality 272 Calcium 8.8 Magnesium 2.2 Icterus Index < 2 Troponin I C-Reactive Protein 77.1 H Serum Total Protein Albumin % (PEP) Albumin (PEP) Cmdgp-9-Iypizgxpq Uaqpz-2-Osyjkonxp (%) Zqtbi-0-Xngfncnpy Esifx-8-Trzkvqoga (%) Gvry-1-Gkrjmjhv Vytg-1-Fnthjjsh (%) Jxjd-0-Bqcbcesj Jayz-9-Dcjjpbua (%) Gamma Globulins Gamma Globulins (%) PEP Comment Specimen Hemolysis < 15 Rheumatoid Factor Complement C3 Complement C4 Assessment and Plan Assessment and Plan: Patient seen, chart reviewed. Discussed with hospitalists. ABC higher at 13K and CRP much higher. Feels better and temp decreasing. Immune globulins normal. Await BCR ABL. Discussed mixed carmen found in urine and Gm neg dafne is presnet. Will ID and check sensitivities. History of EBLS E Coli in April. Will see again on Friday. Dr. Roldan is electronic commerce specialist this weekend and will see if called. [place] 1. leucocytosis/uti 2. r/o hematoproliferative disorder. bm studies pending 3. h/o dental implant 4. overweight 5. 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 frequent uti's 7. h.o urosepsis plan await bm studies continue antibiotics consider further dental eval for dental implant consider uti propylaxis with methenamine diet and exercise for weight control f/u with rheum/heme/onc - Time Spent With Patient Total time spent is greater than 50% in coordination of care (as documented) at patient's floor/unit and/or counseling patient: less than 15 minutes
--- NOTE | 2017-06-29 12:06 | Progress Note ---
- Date 06/29/17 Subjective: Mckayla is a 36 y/o woman whose history began in March. She had a UTI in mid March. Her urine culture on April 08 grew an ESBL Escherichia coli. Before those results were available, she was empirically given Cipro. She then traveled to [place] because she and her family were going to [employer]. A couple of days later she felt that she was still having dysuria and right flank pain; she felt she was not getting better. She called back to her doctor's office to check on her urine culture results and was told that the only oral options were sulfa or Macrobid. She has a sulfa allergy and so she was given Macrobid which she filled at a pharmacy in [place]. She continued to not feel well and was awakened in the middle of the night by her Apple watch because her pulse was 144. Her family took her to the hospital in [place]. Her white blood cell count was about 21,000. She was admitted and developed sepsis with acute respiratory failure necessitating intubation. Her blood cultures were positive for ESBL Escherichia coli per records. She also developed ARDS and was treated with steroids for that as well as doxycycline. She had some elevated liver function tests noted which was thought to possibly be due to the doxycycline. She was intubated for about 6 days and then extubated. She had a CT of the chest looking for pulmonary embolus which was negative by report. She also had a CT of the abdomen and pelvis which per her report was unremarkable. She was discharged near the end of March and was treated with meropenem which was changed to ertapenem on discharge. That course was completed on 04/30. She was seen by Dr. June to establish care and to follow up from her recent sepsis. She reports that she has a history of recurrent UTIs about every 8 months or so. A few hours after she left Dr. June' office on 05/01 she reported that she had started having some low back pain and felt fatigued. She called Dr. Khalil , her PCP, who felt that she should go to the ER to be evaluated. In the emergency room her white blood cell count was mildly elevated but this was actually improved from previously and her lactate was noted to be 3.4. She was tachycardic but not febrile. Dr. Lizarraga from the ER called Dr. June and the decision was made to admit her for observation (05/01/17). She had blood cultures drawn which were negative. Her UA 05/01 was completely negative. She was started on meropenem. On 05/02/17 she reported feeling "fine". WBC was normal. She underwent a bone marrow biopsy on 06/17/17 which was relatively unremarkable. It did show low iron stores and few Gaucher-like cells. She had urinary symptoms twice since her last admission. A UA done on 05/26 which only grew mixed bacterial carmen. She has a h/o chronic inflammatory issues and sees Dr. Wagner (Substance Abuse Nurse at [facility] in [place]) but no definitive diagnosis has ever been established. She has had intermittent arthritis issues including sacroiliitis, and intermittent bouts of abdominal pain with diarrhea with hematochezia on 2 occasions. She has had colonoscopies and several egds without abnormal findings. She presented to the emergency department early this am with urinary frequency and dysuria, fever of 101 at home, and pulse rate of 140, which she was aware of in part due to her apple watch. This is similar to her May 01 presentation. Her lactic acid was only 2.1. She was started on macrobid and had taken 2 doses prior to her ED presentation. In the emergency department, her urinalysis looks essentially perfect tonight, granted she has been on macrobid, but this appears to be working as there is no evidence of cystitis now. The urine culture from yesterday is growing mixed bacterial carmen only. Her WBC is 12.3. Temp in ED 100.7. She was tachycardic at 136bpm. It was felt that this represented a systemic inflammatory response syndrome, no source can be found. A CT of the abdomen and pelvis was done that showed new nonspecific minimal perinephric fat stranding adjacent to the left kidney suggesting infection or inflammation. This could be due to pyelonephritis however the patient's urinalysis appears essentially normal and Hepatic steatosis. A CTA of the chest was also done which showed no pulmonary embolus or acute disease process seen in the chest. 06/29/17 When seen by me this morning continuing to feel better. Again no fevers overnight. She still has some mild discomfort in the left flank pain and suprapubic area but it has progressively improved. Her white blood count remains normal this morning. No further tachycardia. She denies chest pain or pressure. She denies palpitations. She denies nausea. She denies dysuria. She denies any problems with lower extremity edema. Objective Vital signs: Temperature 98.5 F 06/29/17 11:25 Pulse Rate 92 06/29/17 11:25 Respiratory Rate 16 06/29/17 11:25 Blood Pressure 119/72 06/29/17 11:25 Pulse Oximetry 99 06/29/17 11:25 Height/Weight/BMI: Weight 123.2 kg Comments: Gen: alert and oriented. NAD. Pleasant and conversive Skin: warm and dry. HEENT: NC/AT PERRL, EOMI, sclera, lids and conjunctiva wnl. MMM. OP clear. Neck: supple, No JVD, Carotids 2+ without bruits. Lungs: clear, no rales, rhonchi or wheezes Heart: regular. No murmur, rub or gallop Abdomen: obese, soft. ND. +BS. MS: good strength and ROM. No edema. Neuro: no focal deficit Psy: appropriate mood and affect. Results - Labs CBC & Chem 7: 06/29/17 04:19 06/29/17 04:19 Assessment and Plan (1) Elevated lactic acid level Current visit: No Status: Acute (2) Systemic inflammatory response syndrome (SIRS) Current visit: Yes Status: Acute Assessment and Plan: Left flank pain with fever - history of ESBL E. coli UTIs - Urine culture from 06/25 revealed enterobacter - Continue on meropenem - OxyCodone for pain control - blood cultures no growth to date for 3 days Suspect pyelonephritis - Repeat CT does reveal increased para nephrotic stranding consistent with probable pyelonephritis - Renal U/S did not show anything abnormal - continue on Meropenem - Blood cx NGTD Leukocytosis -Pyelonephritis versus chronic inflammatory process -Normalized this am -repeat in am. Elevated CRP -trending down Chronic Inflammatory process - Chronic Celebrex Mildly abnormal bone marrow biopsy -Appreciate consultation by Dr. Michael BRITTON -Switch to protonix bid Prophylaxis -Lovenox and PPI Possibly home tomorrow - Physician Narrative Narrative: Date: 06/29/17 Time: 1202 Hospital Course Summary Disclaimer: The visit summary below is not to be considered part of the above Progress Note. Hospital Course: 06/26/17 systemic inflammatory response syndrome without a clear source in a 36-year- old woman with a somewhat complex medical history as outlined above, possible underlying myelodysplastic syndrome, autoimmune disorder, and/or IBD, and/or immune deficiency. of note as well is her critical illness in march with septic shock and respiratory failure due to esbl e. coli which she states grew from her blood sputum and urine. she is placed in observation status in the critical care unit for serial physical and laboratory evaluation. I requested a crp and an esr to be performed with morning labs. would maintain a low threshold for broadening her antibiotic coverage significantly, as above her urinalysis in the emergency department was quite unremarkable. would also suggest touching base with dr. Larissa June with ID for additional input and to keep her in the loop on Laurence's readmission situation, which again appears quite similar to her May 01 admission to this facility. as an outpatient, one could certainly consider referral back to gastroenterology for consideration for small bowel capsule endoscopy, in attempts to definitively rule out inflammatory bowel disease (unless her cytogenetic testing from her recent bone marrow biopsy showed some light on her underlying systemic inflammatory process). plan of care was discussed with the patient at the time of my evaluation and she expressed understanding and a desire to proceed. further symptom medic supportive and diagnostic cares will be provided as the current workup, or changes in her clinical scenario, indicate. 06/27/17 Left flank pain with fever - Urine culture from 06/25 revels mixed carmen - Continue on meropenem -OxyCodone for pain control Suspect pyelonephritis - Repeat CT does reveal increased para nephrotic stranding consistent with probable pyelonephritis Leukocytosis -Pyelonephritis versus chronic inflammatory process Elevated CRP - Acute elevation on top of chronic inflammatory process Chronic Inflammatory process - Chronic Celebrex Mildly abnormal bone marrow biopsy -Appreciate consultation by Dr. Nanny BRITTON -Continue home Priloc
[2017-06-29] MEDS: LACTOBACILLUS (15B cfu) CAPSULE PO SCH (19:43)
[2017-06-29] MEDS: CETIRIZINE 10 MG TABLET PO SCH ×2 (19:44→21:44)
[2017-06-29] MEDS: CELECOXIB 200 MG CAPSULE PO SCH ×2 (19:44→21:44)
[2017-06-29] MEDS: [UNRECOGNIZED DRUG - OTHER] PO SCH ×2 (19:44→21:44)
[2017-06-30] MEDS: Oxycodone *IR* 5 MG TABLET PO SCH ×4 (01:08→10:12)
[2017-06-30] MEDS: NS 1,000 ML IV SCH ×2 (01:47→03:51)
[2017-06-30] MEDS: MEROPENEM 1 GM in NS 50 ML IV SCH ×2 (01:48→09:02)
[2017-06-30] MEDS: PANTOPRAZOLE 40 MG TABLET PO SCH ×2 (05:17→05:56)
[2017-06-30] MEDS: LACTOBACILLUS (15B cfu) CAPSULE PO SCH (09:02)
--- NOTE | 2017-06-30 09:14 | Infectious Disease Consult ---
Infectious Disease Consult Date of Consultation: 06/30/17 Requesting Physician: Sarah Murray Reason for Consultation: antibiotic recs History of Present Illness: Mrs. Block is a 36 y/o woman known to me from recent admission. She has a history of frequent urinary tract infections, and had urinary tract infection associated with septicemia with ESBL Escherichia coli in March of this year. That episode was also associated with acute respiratory failure. She had another UTI on May 19 with ESBL Escherichia coli that I believe was treated with nitrofurantoin. He was feeling well up until June 20 when she started having some discomfort with urination. Symptoms continued through the next Friday. Describes this as an annoying discomfort but not sarah dysuria. She had a UA obtained on June 21 which was negative other than 1+ leukocyte esterase. Blood cells were only 1-3 which was within the normal range and there was no bacteria seen. There was no urine culture done that day. On June 24 there was another urinalysis obtained and this had 1+ leukocyte esterase 10- 20 white cells with moderate white blood cell clumps and 1+ bacteria. Urinalysis still did not flag for culture and cell culture was not obtained. She was drinking lots of fluids over the weekend to try to help with her symptoms. On June 25 she noticed that her urine appeared darker and it was cloudy and had a strong odor to it. She you to not feel well and started having myalgias and malaise. Her temperature was 99.5. She had a urine culture obtained on June 25, however there was no urinalysis obtained that day. The urine culture initially was reported as growing mixed carmen however ultimately was worked up and grew 50-100,000 colony-forming units per milliliter of Enterobacter aerogenes, R only to augmentin and cefazolin. She woke up in the middle of the night on June 26 and had tachycardia noted by her Apple watch. She came into the emergency room and she was admitted. Her temperature was 100.7, and her lactate was 2.1. Her white blood cell count was elevated around 12-13,000. Blood cultures from June 25 are no growth after 4 days. She actually had another urinalysis obtained late in the evening on June 25 which was completely negative. On admission she had a CTA of the chest which was negative. ET of the abdomen and pelvis which showed new nonspecific perinephric fat stranding adjacent to the left kidney suggesting infection or inflammation. There were no stones noted. She has been on meropenem since June 26. She reports that on Friday she started feeling better and yesterday she felt much better and now she is eager to go home. She does report that she's been seen by urology Dr. Josef Acevedo as an outpatient. Medications Home Medications Medication Instructions Recorded Confirmed Type Cetirizine HCl [Zyrtec] 10 mg PO HS #0 02/04/12 06/25/17 History Omeprazole Magnesium 20 mg PO HS #0 02/04/12 06/25/17 History Celecoxib 200 mg PO HS 05/01/17 06/25/17 History Desog-E.estradiol/E.estradiol 1 tab PO HS 06/16/17 06/25/17 History [Viorele 28 Day Tablet] Naproxen Sodium [Aleve] 1 tab PO Q8H PRN 06/25/17 06/25/17 History Nitrofurantoin Macrocrystal 1 tab PO BID 06/25/17 06/25/17 History [Nitrofurantoin] Tylenol 1,000 mg PO Q6H 06/25/17 06/25/17 History Allergies Allergy/AdvReac Type Severity Reaction Status Date / Time Sulfa (Sulfonamide Allergy Intermediate HIVES Verified 06/26/17 04:08 Antibiotics) [facility] Medical History Updates: ESBL E. coli septicemia associated with UTI and ARDS Mar 2017. she underwent in vitro fertilization after significant difficulty in becoming . atypical sjogren's. 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 Absent: diarrhea, vomiting - Genitourinary Genitourinary: Present: dysuria, flank pain (left), urinary frequency. Absent: hematuria - Musculoskeletal Musculoskeletal: Present: myalgias - Integumentary/Breasts Integumentary: Absent: rash - Neurological Neurological: Absent: headache(s) Exam Vital Signs: Temperature 98.1 F 06/30/17 04:00 Pulse Rate 79 06/30/17 04:00 Respiratory Rate 16 06/30/17 04:00 Blood Pressure 99/53 06/30/17 04:00 Pulse Oximetry 97 06/30/17 04:00 Height/Weight/BMI: Weight 123.2 kg - Constitutional Present: no acute distress, well nourished, well developed - Routine HEENT Exam Head: Present: normocephalic, atraumatic Eye: Present: EOMI, PERRL ENT: Present: mucous membranes moist, oropharynx clear, dentition normal - Routine Neck Exam Present: supple - Routine Respiratory Exam Present: CTA bilaterally - Routine Cardiovascular Exam Present: RRR - Routine Abdominal Exam Present: soft, normoactive bowel sounds, non distended, non tender - Routine Exam Comments: No CVA tenderness - Routine Extremities Exam Absent: cyanosis, clubbing, edema - Routine Skin Exam Absent: rash - Routine Neurological Exam Present: alert, oriented X3, CN II-XII intact, normal speech. Absent: motor deficit - Routine Psychiatric Exam Present: normal affect, normal thought process Results - Labs CBC & Chem 7: 06/30/17 05:06 06/30/17 05:06 Microbiology Results: Urine culture 06/25/17: 50-100,000 CFU/ml E. aerogenes, R only to amoxicillin, cefazolin Blood cultures 06/25/17: NGTD Impression: Sepsis secondary to pyelonephritis Complicated UTI with E. aerogenes 06/25/17 Leukocytosis, resolving Tachycardia H/o sepsis/septicemia with ESBL E. coli from a urinary source 2017 H/o pyelonephritis with ESBL E. coli 2017 H/o recurrent UTIs H/o leukocytosis, chronic, s/p bone marrow biopsy Recommendation: I would recommend finishing out her treatment with cipro 750mg po bid to complete 14 days. This should go through 07/09/17. I will order a renal ultrasound to see if there's any reflux that can be observed. I'm concerned that she has urinary reflux. Recommend continued follow up with Dr. Acevedo. Since this is a different organism, it's difficult to put her on an antibiotic chronically for prophylaxis. I think it's reasonable to try methenamine hippurate 1 gm po bid for prophylaxis. This should be taken with at least 500mg of vitamin C for absorption. I think she could be discharged home today.
[2017-06-30 09:40] VITALS: BP 123/72; RESP 18; TEMP 98.3; O2SAT 98
[2017-06-30 10:06] VITALS: PULSE 78
--- NOTE | 2017-06-30 11:02 | Discharge Summary ---
Discharge Information Date of admission: 06/26/17 14:12 Anticipated date of discharge: 06/30/17 Attending Physician: Sarah Murray MD Primary care physician: Swapna Khalil MD Consults: Dr. Michael June - Discharge Diagnosis (1) Elevated lactic acid level Status: Acute (2) Systemic inflammatory response syndrome (SIRS) Status: Acute Pyelonephritis UTI-recurrent Leukocytosis Systemic inflammatory disease, not specified. H/O atypical Sjogrens - Laboratory Labs: 06/30/17 05:06 06/30/17 05:06 - Radiology Radiology: 06/26/17 CT of abdomen and pelvis New nonspecific minimal perinephric fat stranding adjacent to the left kidney suggesting infection or inflammation. This could be due to pyelonephritis however the patient's urinalysis appears essentially normal, Hepatic steatosis. 06/27/17 Renal ultrasound IMPRESSION: Normal renal sonogram. 06/30/17 Bladder U/S 06/26/17 CTA of chest Impression: No pulmonary embolus or acute disease process seen in the chest. History of Present Illness HPI: Mrs. Block is a 36 y/o woman whose history began in March. She had a UTI in mid March. Her urine culture on April 08 grew an ESBL Escherichia coli. Before those results were available, she was empirically given Cipro. She then traveled to [place] because she and her family were going to [email or web address]. A couple of days later she felt that she was still having dysuria and right flank pain; she felt she was not getting better. She called back to her doctor's office to check on her urine culture results and was told that the only oral options were sulfa or Macrobid. She has a sulfa allergy and so she was given Macrobid which she filled at a pharmacy in [place]. She continued to not feel well and was awakened in the middle of the night by her Apple watch because her pulse was 144. Her family took her to the hospital in [place]. Her white blood cell count was about 21,000. She was admitted and developed sepsis with acute respiratory failure necessitating intubation. Her blood cultures were positive for ESBL Escherichia coli per records. She also developed ARDS and was treated with steroids for that as well as doxycycline. She had some elevated liver function tests noted which was thought to possibly be due to the doxycycline. She was intubated for about 6 days and then extubated. She had a CT of the chest looking for pulmonary embolus which was negative by report. She also had a CT of the abdomen and pelvis which per her report was unremarkable. She was discharged near the end of March and was treated with meropenem which was changed to ertapenem on discharge. That course was completed on 04/30. She was seen by Dr. June to establish care and to follow up from her recent sepsis. She reports that she has a history of recurrent UTIs about every 8 months or so. A few hours after she left Dr. June' office on 05/01 she reported that she had started having some low back pain and felt fatigued. She called Dr. Khalil , her PCP, who felt that she should go to the ER to be evaluated. In the emergency room her white blood cell count was mildly elevated but this was actually improved from previously and her lactate was noted to be 3.4. She was tachycardic but not febrile. Dr. Lizarraga from the ER called Dr. June and the decision was made to admit her for observation (05/01/17). She had blood cultures drawn which were negative. Her UA 05/01 was completely negative. She was started on meropenem. On 05/02/17 she reported feeling "fine". WBC was normal. She underwent a bone marrow biopsy on 06/17/17 which was relatively unremarkable. It did show low iron stores and few Gaucher-like cells. She had urinary symptoms twice since her last admission. A UA done on 05/26 which only grew mixed bacterial carmen. She has a h/o chronic inflammatory issues and sees Dr. Wagner (Neurophysiology Tech at [facility] in [place]) but no definitive diagnosis has ever been established. She has had intermittent arthritis issues including sacroiliitis, and intermittent bouts of abdominal pain with diarrhea with hematochezia on 2 occasions. She has had colonoscopies and several egds without abnormal findings. She presented to the emergency department early this am with urinary frequency and dysuria, fever of 101 at home, and pulse rate of 140, which she was aware of in part due to her apple watch. This is similar to her May 01 presentation. Her lactic acid was only 2.1. She was started on macrobid and had taken 2 doses prior to her ED presentation. In the emergency department, her urinalysis looks essentially perfect tonight, granted she has been on macrobid, but this appears to be working as there is no evidence of cystitis now. The urine culture from yesterday is growing mixed bacterial carmen only. Her WBC is 12.3. Temp in ED 100.7. She was tachycardic at 136bpm. It was felt that this represented a systemic inflammatory response syndrome, no source can be found. A CT of the abdomen and pelvis was done that showed new nonspecific minimal perinephric fat stranding adjacent to the left kidney suggesting infection or inflammation. This could be due to pyelonephritis however the patient's urinalysis appears essentially normal and Hepatic steatosis. A CTA of the chest was also done which showed no pulmonary embolus or acute disease process seen in the chest. Objective Vital signs: Temperature 98.3 F 06/30/17 08:00 Pulse Rate 78 06/30/17 08:00 Respiratory Rate 18 06/30/17 08:00 Blood Pressure 123/72 06/30/17 08:00 Pulse Oximetry 98 06/30/17 08:00 Height/Weight/BMI: Weight 122 kg Comments: Gen: alert and oriented. NAD. Pleasant and conversive Skin: warm and dry. HEENT: NC/AT PERRL, EOMI, sclera, lids and conjunctiva wnl. MMM. OP clear. Neck: supple, No JVD, Carotids 2+ without bruits. Lungs: clear, no rales, rhonchi or wheezes Heart: regular. No murmur, rub or gallop Abdomen: obese, soft. ND. +BS. MS: good strength and ROM. No edema. Neuro: no focal deficit Psy: appropriate mood and affect. Hospital Course This is a general summary of the patient's hospital course. For more details refer to the complete medical record. Hospital course: Ms. Block was admitted for pyelonephritis. I spoke with Dr. June who recommended initiating meropenem. She had leukocytosis on admission in this improved with the meropenem. Her said rate on admission was 55 which is actually low for her. Her CRP on admission was 46 and peaked at hundred and 63.8. This trended down to 58.2 prior to her discharge. She presented with flank pain and suprapubic pain. This all resolved with the resolution of her infection. Dr. Rodriguez was consultation as the patient had recently undergone a bone marrow biopsy to try to sort out her inflammatory abnormalities. Multiple labs were still pending at the time of her discharge. Dr. Roldan saw the patient and Dr. Rodriguez's absence over the weekend and recommended methenamine for UTI prophylaxis. Dr. June did see the patient on a of discharge and recommending stopping the meropenem and putting her on oral Cipro to complete another 10 day course before starting the methenamine. Her blood cultures were negative. The previous urine culture did grow out Enterobacter sensitive to Cipro. Ms. Block was up and ambulating and feeling very well on the day of discharge. She was eating well. Normal bowel and bladder function. Patient was felt stable to discharged to home with close follow-up. Time spent with patient: 25 - 35 minutes Resuscitation Status: Full Code Discharge Plan - Discharge Disposition Disposition: Discharged Home, Self-Care *Condition: Stable Reason For Visit (Visit label in EMR): Pyelonephritis - Discharge Medications *Discharge Medications: New Acidoph/L.bulg/Bif.b/S.thermop [Bacid Caplet] 2 cap PO BIDWM tablet Ciprofloxacin [Cipro 750 mg] 750 mg PO Q12HR #20 tab Methenamine Hippurate [Hiprex] 1 gm PO BID #60 tab Continue Omeprazole Magnesium 20 mg PO HS #0 Desog-E.estradiol/E.estradiol [Viorele 28 Day Tablet] 1 tab PO HS Naproxen Sodium [Aleve] 1 tab PO Q8H PRN PRN Reason: Pain Tylenol 1,000 mg PO Q6H Cetirizine HCl [Zyrtec] 10 mg PO HS #0 Celecoxib 200 mg PO HS Discontinued Nitrofurantoin Macrocrystal [Nitrofurantoin] 1 tab PO BID - Discharge Packet/Instructions *Diet: As tolerated *Activity: As tolerated *Wound Care: N/A *Expected Signs/Symptoms: N/A *Notify Physician if: Worsening recurrent symptoms *During Business Hours Contact: PCP *After Business Hours Contact: MD personnel generalist manager for PCP *Pending Lab/Results: Will be notified (Multiple labs pending for oncology and rheumatology work up) - Referrals/Follow Up - Patient Handouts Patient Handouts: Urinary Tract Infection in Women (GEN) - Dismissal Complete Discharge Instructions are:: Complete Physician Narrative - Narrative Attestation Narrative: Date: 06/30/17 Time: 1054
--- NOTE | 2017-06-30 12:37 | Ultrasound Report ---
EXAM: US bladder HISTORY: evaluate for urinary reflux COMPARISON: No prior studies available for comparison. FINDINGS: URINARY BLADDER: The urinary bladder was normal size and contour without wall thickening or filling defect. The prevoid bladder volume was 415.8 cc. The post void bladder volume was 21.30 cc. Bilateral ureteral jets were visualized appearing to flow into the urinary bladder. No retrograde flow was observed from the urinary bladder into the distal ureters during this exam. IMPRESSION: 1. No sonographic evidence of vesicoureteral reflux. 2. Small volume post void bladder residual measuring 21.30 cc .
== END 2017-06-30 12:10 | disposition home or self-care (01) | DRG 872 ==
LOC: CCU 22:35 → ED 22:35 → CCU 06-26 02:22 → MED 06-26 10:22
PROVIDERS: ADMIT Internal Medicine; ATTEND Internal Medicine Cardiovascular Disease